=== PATIENT | male | born 1935 | race Caucasian/White ===

== ENCOUNTER 2022-05-30 10:14 | Outpatient (CLI) | payer MEDICARE, BC, SELFPAY | END 2022-05-30 10:15 | disposition home or self-care (01) | LOC: WOUND 10:15 | PROVIDERS: PCP Family Medicine; Visit Provider Nurse Practitioner Family | DX: E11.622 Type 2 diabetes mellitus with other skin ulcer (principal); L89.310 Pressure ulcer of right buttock, unstageable; L89.320 Pressure ulcer of left buttock, unstageable; M79.81 Nontraumatic hematoma of soft tissue; Z79.4 Long term (current) use of insulin; E66.01 Morbid (severe) obesity due to excess calories; Z68.41 Body mass index [BMI] 40.0-44.9, adult; S71.102A Unspecified open wound, left thigh, initial encounter | CPT/HCPCS: 10140; 99213 ==

== ENCOUNTER 2022-06-03 09:49 | Outpatient (CLI) | payer MEDICARE, BC, SELFPAY ==
--- NOTE | 2022-06-03 10:01 | CRLHL7_ITS ---
For Patients: As a result of the Century Cures Act, medical imaging exams and procedure reports are released immediately into your electronic medical record. You may view this report before your referring provider. If you have questions, please contact your health care provider. EXAM: Lower extremity arterial doppler ultrasound. TECHNIQUE: The bilateral lower extremity arteries were examined per exam specific protocol. Ultrasound performed using real-time baron scale imaging (B-mode 2D), color-flow Doppler and spectral analysis. Peak systolic velocities (PSV), Doppler waveform quality and velocity ratios if applicable, were documented at sites per exam specific protocol. In addition, resting ankle-brachial and toe-brachial indices were obtained. INDICATION: Lower extremity ulceration. Evaluate for peripheral vascular disease. COMPARISON: None available FINDINGS: RIGHT: PHYTOPATHOLOGY TEACHER PROX: 115 cm/sec; triphasic waveforms PFA: 55 cm/sec; biphasic waveforms SFA PROX: 171 cm/sec; triphasic waveforms SFA MID: 163 cm/sec; triphasic waveforms SFA DIST: 143 cm/sec; monophasic waveforms POP: 98 cm/sec; monophasic waveforms Peroneal: 100 cm/sec; monophasic waveform ACCOUNTS PAYABLE COORDINATOR: 62 cm/sec; monophasic waveforms DPA: 36 cm/sec; monophasic waveforms LEFT: PHYTOPATHOLOGY TEACHER: 110 cm/sec; triphasic waveforms PFA: 37 cm/sec; triphasic waveforms SFA PROX: 106 cm/sec; triphasic waveforms SFA MID: 95 cm/sec; triphasic waveforms SFA DIST: 70 cm/sec; triphasic waveforms POP: 81 cm/sec; triphasic waveforms Peroneal: Occluded ACCOUNTS PAYABLE COORDINATOR: 126 cm/sec; monophasic waveforms ALEXANDRO: 45 cm/sec; monophasic waveforms DPA: Occluded IMPRESSION: 1. 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 Otherwise, no no sonographic evidence of hemodynamically significant stenosis or occlusion in bilateral lower extremity arteries. Dictated by Burke Steen MD @ 06/03/2022 12:37:29 PM (Electronically Signed)
== END 2022-06-03 09:50 | disposition home or self-care (01) ==
PROVIDERS: PCP Family Medicine; Visit Provider Nurse Practitioner Family
DX: L97.912 Non-pressure chronic ulcer of unspecified part of right lower leg with fat layer exposed (principal)
CPT/HCPCS: 93926

== ENCOUNTER 2022-06-06 08:47 | Outpatient (CLI) | payer MEDICARE, BC, SELFPAY | END 2022-06-06 08:48 | disposition home or self-care (01) | LOC: WOUND 08:48 | PROVIDERS: PCP Family Medicine; Visit Provider Nurse Practitioner Family | DX: I87.331 Chronic venous hypertension (idiopathic) with ulcer and inflammation of right lower extremity (principal); L97.818 Non-pressure chronic ulcer of other part of right lower leg with other specified severity; L89.310 Pressure ulcer of right buttock, unstageable; L89.320 Pressure ulcer of left buttock, unstageable; L89.890 Pressure ulcer of other site, unstageable | CPT/HCPCS: 97602; 99215 ==

== ENCOUNTER 2022-06-11 09:39 | Outpatient (CLI) | payer MEDICARE, BC, SELFPAY ==
[2022-06-11 13:36] LABS: Albumin* 3.6 g/dL (3.3-5.0)
[2022-06-11 14:13] LABS: Ferritin* 49.2 ng/mL (17.9-464.0)
== END 2022-06-11 09:40 | disposition home or self-care (01) ==
LOC: LKVLAB 09:39
PROVIDERS: Nurse Practitioner Family; PCP Family Medicine; Visit Provider Family Medicine
DX: Z00.00 Encounter for general adult medical examination without abnormal findings (principal); L97.912 Non-pressure chronic ulcer of unspecified part of right lower leg with fat layer exposed; L03.90 Cellulitis, unspecified; I77.9 Disorder of arteries and arterioles, unspecified; E11.9 Type 2 diabetes mellitus without complications; I10 Essential (primary) hypertension; Z13.21 Encounter for screening for nutritional disorder
CPT/HCPCS: 36415; 82040; 82728; 84630

== ENCOUNTER 2022-06-13 09:47 | Outpatient (CLI) | payer MEDICARE, BC, SELFPAY | END 2022-06-13 09:48 | disposition home or self-care (01) | LOC: WOUND 09:48 | PROVIDERS: PCP Family Medicine; Visit Provider Nurse Practitioner Family | DX: L89.310 Pressure ulcer of right buttock, unstageable (principal); L89.320 Pressure ulcer of left buttock, unstageable; L89.890 Pressure ulcer of other site, unstageable | CPT/HCPCS: 97602; 99214 ==

== ENCOUNTER 2022-06-27 09:44 | Outpatient (CLI) | payer MEDICARE, BC, SELFPAY | END 2022-06-27 09:45 | disposition home or self-care (01) | LOC: WOUND 09:44 | PROVIDERS: PCP Family Medicine; Visit Provider Nurse Practitioner Family | DX: L89.310 Pressure ulcer of right buttock, unstageable (principal); L89.320 Pressure ulcer of left buttock, unstageable; L89.890 Pressure ulcer of other site, unstageable | CPT/HCPCS: 97602 ==

== ENCOUNTER 2022-06-28 08:42 | Outpatient (CLI) | payer MEDICARE, BC, SELFPAY | END 2022-06-28 08:43 | disposition home or self-care (01) | LOC: RAD 08:42 | PROVIDERS: PCP Family Medicine; Visit Provider Family Medicine | DX: I10 Essential (primary) hypertension (principal) | CPT/HCPCS: 93306 ==

== ENCOUNTER 2022-07-11 09:34 | Outpatient (CLI) | payer MEDICARE, BC, SELFPAY | END 2022-07-11 09:35 | disposition home or self-care (01) | LOC: WOUND 09:35 | PROVIDERS: PCP Family Medicine; Visit Provider Nurse Practitioner Family | DX: E11.622 Type 2 diabetes mellitus with other skin ulcer (principal); L89.320 Pressure ulcer of left buttock, unstageable; L89.310 Pressure ulcer of right buttock, unstageable; Z79.4 Long term (current) use of insulin | CPT/HCPCS: 99212 ==

== ENCOUNTER 2022-07-12 09:40 | Outpatient (CLI) | payer MEDICARE, BC, SELFPAY ==
[2022-07-12 13:33] LABS: NT Pro B Type NatriureticPept* 181 PG/mL (0-450)
== END 2022-07-12 09:41 | disposition home or self-care (01) ==
LOC: LKVREF 09:42
PROVIDERS: PCP Family Medicine; Visit Provider Family Medicine
DX: E11.9 Type 2 diabetes mellitus without complications (principal); I87.2 Venous insufficiency (chronic) (peripheral); R60.9 Edema, unspecified; I10 Essential (primary) hypertension
CPT/HCPCS: 83880

== ENCOUNTER 2022-12-09 09:33 | Outpatient (CLI) | payer MEDICARE, BC, SELFPAY ==
[2022-12-09 14:16] LABS: Creatinine Urine 148.5 mg/dL; Microalbumin Creatinine Ratio 10 mg/g (0-30); Microalbumin Urine 2 mg/dL
== END 2022-12-09 09:34 | disposition home or self-care (01) ==
PROVIDERS: PCP Family Medicine; Visit Provider Family Medicine
DX: Z00.00 Encounter for general adult medical examination without abnormal findings; E11.9 Type 2 diabetes mellitus without complications; I10 Essential (primary) hypertension; E78.5 Hyperlipidemia, unspecified; N40.0 Benign prostatic hyperplasia without lower urinary tract symptoms
CPT/HCPCS: 80053; 80061; 82043; 82570; 84153

== ENCOUNTER 2022-12-17 08:28 | Outpatient (CLI) | payer MEDICARE, BC, SELFPAY ==
[2022-12-17 13:38] LABS: Albumin* 3.7 g/dL (3.3-5.0); Chloride* 104 mmol/L (96-114); Potassium* 4.5 mmol/L (3.6-5.1); Sodium* 139 mmol/L (135-149)
[2022-12-17 13:40] LABS: Carbon Dioxide* 28 mmol/L (20-32); Cholesterol* 138 mg/dL (90-199); Creatinine* 0.7 mg/dL (0.5-1.5); Estimated Glomerular Filt Rate 90 ml/min
[2022-12-17 13:41] LABS: Alanine Aminotransferase* 16 U/L (4-50); Alkaline Phosphatase* 85 U/L (40-150); Aspartate Amino Transferase* 26 U/L (12-35); Bilirubin Total* 0.9 mg/dL (0.1-1.5); Blood Urea Nitrogen* 19 mg/dL (7-30); Calcium* 9.1 mg/dL (8.4-10.6); Glucose* 151 mg/dL (60-115); Total Protein* 7.3 g/dL (6.0-8.3); Triglycerides* 117 mg/dL (40-149)
[2022-12-17 13:55] LABS: HDL Cholesterol* 47 mg/dL (>=40); LDL Cholesterol Calculated 68 mg/dL (<100)
[2022-12-17 14:07] LABS: PSA Screen* 1.15 ng/mL (0.10-4.00)
== END 2022-12-17 08:29 | disposition home or self-care (01) ==
PROVIDERS: PCP Family Medicine; Visit Provider Family Medicine
DX: Z00.00 Encounter for general adult medical examination without abnormal findings (principal); E11.3293 Type 2 diabetes mellitus with mild nonproliferative diabetic retinopathy without macular edema, bilateral; E11.9 Type 2 diabetes mellitus without complications; I10 Essential (primary) hypertension; N40.0 Benign prostatic hyperplasia without lower urinary tract symptoms; Z12.5 Encounter for screening for malignant neoplasm of prostate
CPT/HCPCS: 80053; 80061; 84153

== ENCOUNTER 2023-06-03 10:34 | Outpatient (CLI) | payer MEDICARE, BC, SELFPAY | END 2023-06-03 10:35 | disposition home or self-care (01) | LOC: NFLDREF 06-04 11:02 | PROVIDERS: PCP Family Medicine; Referring Provider Family Medicine; Visit Provider Family Medicine | DX: Z00.00 Encounter for general adult medical examination without abnormal findings (principal); E11.9 Type 2 diabetes mellitus without complications; N40.0 Benign prostatic hyperplasia without lower urinary tract symptoms; I10 Essential (primary) hypertension; E78.5 Hyperlipidemia, unspecified | CPT/HCPCS: 80053; 80061; 82043; 82570; 84153 ==

== ENCOUNTER 2023-06-06 14:31 | Outpatient (CLI) | payer MEDICARE, BC, SELFPAY | END 2023-06-06 14:32 | disposition home or self-care (01) | LOC: NFLDREF 06-09 10:59 | PROVIDERS: PCP Family Medicine; Referring Provider Family Medicine; Visit Provider Family Medicine | DX: E11.9 Type 2 diabetes mellitus without complications (principal); I25.10 Atherosclerotic heart disease of native coronary artery without angina pectoris; L03.90 Cellulitis, unspecified; I87.2 Venous insufficiency (chronic) (peripheral); R60.9 Edema, unspecified; I83.009 Varicose veins of unspecified lower extremity with ulcer of unspecified site; L97.909 Non-pressure chronic ulcer of unspecified part of unspecified lower leg with unspecified severity; B99.9 Unspecified infectious disease; J44.9 Chronic obstructive pulmonary disease, unspecified; I77.9 Disorder of arteries and arterioles, unspecified; L89.611 Pressure ulcer of right heel, stage 1; L89.621 Pressure ulcer of left heel, stage 1 | CPT/HCPCS: 82043; 82570 ==

== ENCOUNTER 2023-06-13 11:15 | Emergency (ER) | payer MEDICARE, BC, SELFPAY ==
[2023-06-13] VITALS (7 sets, daily range): BP systolic 120–169; BP diastolic 80–119; PULSE 77–93; RESP 20–29; TEMP 36.6; O2SAT 89–91
--- NOTE | 2023-06-13 11:43 | CRLHL7_ITS ---
For Patients: As a result of the Cures Act, medical imaging exams and procedure reports are released immediately into your electronic medical record. You may view this report before your referring provider. If you have questions, please contact your health care provider. INDICATION: Cough TECHNIQUE: Chest 2 views COMPARISON: 07/12/2022 FINDINGS: Tortuosity of the aorta. Cardiac silhouette is upper limits of normal. Ankylosis thoracic spine. No pleural effusion. Bronchial wall thickening in both lower lobes. No dense infiltrate. IMPRESSION: Bilateral bronchiolitis. Dictated by Mat Lopez MD @ 06/13/2023 12:36:59 PM (Electronically Signed)
--- NOTE | 2023-06-13 11:49 | ED_ITS ---
HPI - General Adult General Chief complaint: Cough Stated complaint: cough Time Seen by Provider: 06/13/23 11:37 Source: patient and EMS Mode of arrival: EMS History of Present Illness HPI narrative: 87-year-old male coming in today via EMS for low oxygen saturations. According to his home health nurse he was standing around 90% at home and so it was recommended he come to the ER. Patient states he has been coughing all day and all night for the last 2 days. He denies any fevers or chills. No nausea or vomiting. Denies of a cough being productive. Of note, patient was seen in the clinic 7 days ago where his oxygen saturation was 90%. Patient does have a history of COPD. He and his Olimpia tell me that 90% is his baseline and that is what he is chronically at. 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 His tells me that they have been blistering more in the last week or so, however are not becoming more erythematous. He does state that he does not been elevating his legs nor does he wear any compression stockings. He is currently on Keflex for the stage I ulcers of the heels which he started approximately 6 days ago. Related Data Home Medications Medication Instructions Recorded Confirmed albuterol sulfate 90 mcg/actuation g inhalation 05/27/22 06/06/23 aerosol inhaler cholecalciferol (vitamin D3) 25 25 mcg PO DAILY 06/10/22 06/06/23 mcg (1,000 unit) capsule ibuprofen 200 mg tablet mg PO DAILY 06/10/22 06/06/23 tiotropium bromide 18 mcg capsule 18 inhalation DAILY 06/10/22 06/06/23 with inhalation device triamcinolone acetonide 0.1 % 1 applic topical PRN 06/10/22 06/06/23 topical cream mupirocin 2 % topical ointment 1 applic topical DAILY PRN 06/13/22 06/06/23 multivitamin (Daily Multi-Vitamin 1 tab PO QDAY 07/12/22 06/06/23 tablet) psyllium husk PO .prn 07/12/22 06/06/23 zinc gluconate 30 mg tablet 30 mg PO QDAY 07/12/22 06/06/23 pumpkin seed extract-soy germ 300 2 cap PO DAILY 08/23/22 06/06/23 mg capsule (Azo Bladder Control) Previous Rx's Medication Instructions Recorded lancets (Microlet Lancet) #300 ea 06/13/22 Diabetic Test Strips #100 ea 12/09/22 fluticasone propionate 230 2 inh inhalation BID #12 grams 12/25/22 mcg-salmeterol 21 mcg/actuation HFA inhaler (Advair HFA) pen needle, diabetic 31 gauge x #100 ea 12/26/22/16 (BD Ultra-Fine Mini Pen Needle) montelukast 10 mg tablet 10 mg PO DAILY #90 tabs 01/20/23 rosuvastatin 5 mg tablet 5 mg PO .hs #90 tabs 01/20/23 finasteride 5 mg tablet 5 mg PO DAILY #90 tabs 02/14/23 citalopram 20 mg tablet 20 mg PO DAILY #90 tabs 02/20/23 insulin aspart U-100 100 unit/mL 10 unit (0.1 mL) subcut BID #15 mL 02/20/23 (3 mL) subcutaneous pen (Novolog FlexPen U-100 Insulin aspart) metoprolol succinate 25 mg 25 mg PO DAILY #90 tabs 02/20/23 tablet,extended release 24 hr oxybutynin chloride 5 mg 5 mg PO DAILY #90 tabs 02/20/23 tablet,extended release 24 hr insulin glargine 100 unit/mL (3 30 unit (0.3 mL) subcut BID #15 mL 03/18/23 mL) subcutaneous pen (Basaglar KwikPen U-100 Insulin) tamsulosin 0.4 mg capsule 0.8 mg (2 x 0.4 mg) PO DAILY #180 04/17/23 caps potassium chloride 10 mEq 10 meq PO DAILY #30 caps 05/14/23 capsule,extended release cephalexin 500 mg capsule 500 mg PO TID #30 caps 06/06/23 furosemide 20 mg tablet 40 mg (2 x 20 mg) PO DAILY #180 06/06/23 tabs nitroglycerin 0.4 mg sublingual 0.4 mg sublingual Q5-15M PRN chest 06/06/23 tablet pain #25 tabs semaglutide 0.25 mg or 0.5 mg (2 0.25 mg (0.4 mL) subcut QWEEK #3 mL 06/06/23 mg/3 mL) subcutaneous pen injector (Ozempic) semaglutide 0.25 mg or 0.5 mg (2 0.5 mg (0.8 mL) subcut QWEEK #6 mL 06/06/23 mg/3 mL) subcutaneous pen injector (Ozempic) silver sulfadiazine 1 % topical 1 applic topical BID #50 grams 06/06/23 cream (Silvadene) doxycycline hyclate 100 mg capsule 100 mg PO BID 7 days #14 caps 06/13/23 Allergies Allergy/AdvReac Type Severity Reaction Status Date / Time Angiotensin-converting Allergy Uncoded 06/06/23 13:42 enzyme inhibitor HMG-CoA reductase inhibitor Allergy Uncoded 06/06/23 13:42 Influenza A virus Allergy Uncoded 06/06/23 13:42 [facility] Medical History Venous stasis ulcer ?I83.009 - Varicose veins of unspecified lower extremity with ulcer of unspecified site (ICD-10) ?L97.909 - Non-pressure chronic ulcer of unspecified part of unspecified lower leg with unspecified severity (ICD-10) CAD (coronary artery disease) ?I25.10 - Atherosclerotic heart disease of [place] coronary artery without angina pectoris (ICD-10) COPD (chronic obstructive pulmonary disease) ?J44.9 - Chronic obstructive pulmonary disease, unspecified (ICD-10) Peripheral arterial occlusive disease ?I77.9 - Disorder of arteries and arterioles, unspecified (ICD-10) BPH (benign prostatic hyperplasia) ?N40.0 - Benign prostatic hyperplasia without lower urinary tract symptoms (ICD-10) Type 2 diabetes mellitus without complication (05/24/15) ?E11.9 - Type 2 diabetes mellitus without complications (ICD-10) Non-pressure ulcer of right lower extremity with fat layer exposed ?L97.912 - Non-pressure chronic ulcer of unspecified part of right lower leg with fat layer exposed (ICD-10) Cellulitis ?L03.90 - Cellulitis, unspecified (ICD-10) Surgical History History of umbilical hernia repair ?Z98.890 - Other specified postprocedural states (ICD-10) ?Z87.19 - Personal history of other diseases of the digestive system (ICD-10) History of tonsillectomy ?Z90.89 - Acquired absence of other organs (ICD-10) Family History Father Myocardial infarction, Onset Age: 87 Mother Pulmonary embolism, Onset Age: 86 Brother Pneumonia, Onset Age: 78 Social History Narrative: Does not drink alcohol Does not use illicit drugs Former smoker- quit over 30 years ago Retried from employment- worked in a [employer] Smoking Status: Former smoker Do you use any of these nicotine containing products: None Second hand tobacco smoke exposure: No How often do you have a drink containing alcohol: never AUDIT-C Alcohol total score: 0 Non-prescribed substance use: denies use Little interest or pleasure in doing things: not at all Feeling down, depressed, or hopeless: not at all Exam Narrative: Exam Narrative: Morbidly obese, elderly patient in no acute distress. Cooperative. Appears to have some confusion. HEENT: Normocephalic atraumatic. Pupils are equally round reactive to light. Extraocular muscles are intact. Conjunctivae are moist without any icterus noted. Slightly dry mucous membranes. Neck is supple. Cardiovascular: Heart is regular rate and rhythm S1 and S2 are present without any murmurs, however heart sounds are quite distant. Lungs: Clear to auscultation bilaterally no wheezes rhonchi or rales are appreciated. Patient takes deep breaths without any discomfort. However, breat h sounds are distant secondary to body habitus. Abdomen: Large and protuberant with normal bowel sounds. Extremities: Bilateral lower extremities show 3+ pitting edema with [place] induration. Skin has multiple fluid filled blisters with 1 broken blister on the left lower extremity. The skin is erythematous and warm to touch bilaterally. Does have a small ulcer on the right heel that appears to be a stage II. Const: Vital Signs, click to edit/add: Vital Signs - 24 hr 06/13/23 11:31 06/13/23 12:15 Temperature 97.9 F Pulse Rate [Left P ulse Oximeter] 85 Respiratory Rate 20 Blood Pressure [Ri ght Upper Arm] 132/119 H Pulse Oximetry 91 90 Oxygen Delivery Me thod Room Air Course Course Hospital Course: Lab work does not show any evidence of bacterial infection. CRP is 1.3, normal lactate, normal white blood cell count. Triple swab is negative. Chest x-ray does show bilateral bronchiolitis. Patient remained between 88-92% on room air while here. With ambulation he sits around 88-90%, he does not feel more short of breath with ambulation. Vital Signs Vital signs: Initial Vital Signs Temperature 97.9 F 06/13/23 11:31 Temperature Source Temporal Artery Scan 06/13/23 11:31 Pulse Rate 85 06/13/23 11:31 Pulse Rhythm Regular 06/13/23 11:31 Respiratory Rate 20 06/13/23 11:31 Blood Pressure 132/119 H 06/13/23 11:31 Blood Pressure Mean 123 H 06/13/23 11:31 Blood Pressure Position Sitting 06/13/23 11:31 Pulse Oximetry 91 06/13/23 11:31 Oxygen Delivery Method Room Air 06/13/23 11:31 Vital Signs Temperature 97.9 F 06/13/23 11:31 Pulse Rate 85 06/13/23 11:31 Respiratory Rate 20 06/13/23 11:31 Blood Pressure 132/119 H 06/13/23 11:31 Pulse Oximetry 91 06/13/23 11:31 Oxygen Delivery Method Room Air 06/13/23 11:31 Temperature 97.9 F 06/13/23 11:31 Pulse Rate 85 06/13/23 11:31 Respiratory Rate 20 06/13/23 11:31 Blood Pressure 132/119 H 06/13/23 11:31 Pulse Oximetry 90 06/13/23 12:15 Oxygen Delivery Method Room Air 06/13/23 11:31 Medical Decision Making [facility] Narrative Medical decision making narrative: 87-year-old male with COPD, bronchiolitis likely viral in nature, presenting with oxygen saturation that appears to be at his baseline. At this time I do think it is safe for him to be discharged back home. However, given the appearance of bronchiolitis on x-ray we will cover him for atypicals with doxycycline for 7 days. Azithromycin not chosen given the patient is currently on citalopram. Recommend following up with primary care to discuss the need for oxygen at home given his chronic COPD. Medical Records Medical records reviewed: Yes I reviewed the patient's medical records Lab Data Lab results reviewed: Yes I reviewed the patient's lab results Labs: Lab Results 06/13/23 06/13/23 06/13/23 Range/Units 12:20 13:00 14:14 WBC 8.75 (4.50-11.00) K/uL RBC 4.97 (4.30-5.90) m/uL Hgb 15.1 (13.5-17.5) gm/dL Hct 46.3 (37.0-53.0) % MCV 93 (80-100) fL MCH 30 (26-34) pg MCHC 33 (32-36) gm/dL RDW Coeff of Tommy 13.9 (11.5-15.5) % Plt Count 150 (140-440) K/uL Neut % (Auto) 71.1 (42.0-72.0) % Lymph % (Auto) 15.9 L (20-44) % Lee % (Auto) 8.2 (0.0-11.0) % Eos % (Auto) 3.7 (0.0-7.0) % Baso % (Auto) 0.5 (0.0-3.0) % Neut # (Auto) 6.23 (1.7-7.0) K/uL Lymph # (Auto) 1.40 (0.90-2.90) K/uL Lee # (Auto) 0.70 (0.00-0.90) K/UL Eos # (Auto) 0.32 (0.00-0.50) K/uL Baso # (Auto) 0.04 (0.00-0.30) K/uL Abs Immat Gran (auto) 0.05 (0.00-0.30) K/uL Imm/Tot Granulo (auto) 0.6 % Diff Slide Review Acceptable Review (Acceptable) Sodium 136 (135-149) mmol/L Potassium 4.2 (3.6-5.1) mmol/L Chloride 102 (96-114) mmol/L Carbon Dioxide 26 (20-32) mmol/L BUN 25 (7-30) mg/dL Creatinine 0.8 (0.5-1.5) mg/dL Estimated GFR 87 ml/min Glucose 276 H (60-115) mg/dL Lactate 1.9 (0.5-1.9) mmol/L Calcium 9.0 (8.4-10.6) mg/dL C-Reactive Protein 1.3 H (0.5-1.0) mg/dL NT-Pro-B Natriuret Pep 177 pg/mL SARS-CoV-2 (PCR) Negative SARS-CoV-2 (Negative) Influenza Type A (PCR) Negative PCR FLU A (Negative) Influenza Type B (PCR) Negative PCR FLU B (Negative) RSV (PCR) Negative PCR RSV (Negative) Imaging Data Chest x-ray: Attestation: I have reviewed the pertinent imaging results. Radiologist's impression: Chest 2 views COMPARISON: 07/12/2022 FINDINGS: Tortuosity of the aorta. Cardiac silhouette is upper limits of normal. Ankylosis thoracic spine. No pleural effusion. Bronchial wall thickening in both lower lobes. No dense infiltrate. IMPRESSION: Bilateral bronchiolitis. Discharge Plan Discharge Clinical Impression: Bronchiolitis, COPD (chronic obstructive pulmonary disease) Patient Disposition: Home, Self-Care Condition: Stable Additional Instructions: There was no evidence of pneumonia on your exam today. You do have what appears to be bronchiolitis which is an inflammation of the lungs. Because of this you will be placed on another antibiotic, doxycycline, you should continue your Keflex. Recommend following up with your primary care provider to discuss the need for oxygen. It appears that an oxygen saturation of 88-92% as your baseline and nothing to be concerned about at this time, but again do recommend you follow up with your primary care provider to discuss the need for oxygen at home. Prescriptions: New doxycycline hyclate 100 mg capsule 100 mg PO BID 7 Days Qty: 14 0RF No Action albuterol sulfate 90 mcg/actuation HFA aerosol inhaler inhalation Patient Comments: INHALE 2 PUFFS BY MOUTH EVERY 4 HOURS NEEDED mupirocin 2 % ointment 1 applic topical DAILY PRN Azo Bladder Control 300 mg capsule 2 cap PO DAILY nitroglycerin 0.4 mg tablet, sublingual 0.4 mg sublingual Q5-15M PRN (Reason: chest pain) Qty: 25 1RF Ozempic 0.25 mg or 0.5 mg (2 mg/3 mL) pen injector 0.25 mg subcut QWEEK Qty: 3 0RF Rx Instructions: for 4 weeks Ozempic 0.25 mg or 0.5 mg (2 mg/3 mL) pen injector 0.5 mg subcut QWEEK Qty: 6 1RF furosemide 20 mg tablet 40 mg PO DAILY Qty: 180 1RF Rx Instructions: may take additional tablet as needed for shortness of breath silver sulfadiazine [Silvadene] 1 % cream 1 applic topical BID Qty: 50 1RF Rx Instructions: apply a 1.5 mm thickness cephalexin 500 mg capsule 500 mg PO TID Qty: 30 0RF cholecalciferol (vitamin D3) 25 mcg (1,000 unit) capsule 25 mcg PO DAILY ibuprofen 200 mg tablet PO DAILY tiotropium bromide 18 mcg capsule, w/inhalation device 18 inhalation DAILY triamcinolone acetonide 0.1 % cream 1 applic topical PRN Rx Instructions: Apply thin layer to affected skin twice a day as needed. Max 2 weeks of continous use. (DME) lancets [Microlet Lancet] Misc See Rx Instructions .Route Qty: 300 8RF Rx Instructions: Use to test TID psyllium husk PO .prn zinc gluconate 30 mg tablet 30 mg PO QDAY multivitamin [Daily Multi-Vitamin] Tablet 1 tab PO QDAY (DME) Diabetic Test Strips Mis See Rx Instructions .Route Qty: 100 12RF Rx Instructions: Bid citalopram 20 mg tablet 20 mg PO DAILY Qty: 90 1RF oxybutynin chloride 5 mg tablet extended release 24hr 5 mg PO DAILY Qty: 90 1RF metoprolol succinate 25 mg tablet extended release 24 hr 25 mg PO DAILY Qty: 90 3RF insulin aspart U-100 [Novolog FlexPen U-100 Insulin] 100 unit/mL (3 mL) insulin pen 10 unit subcut BID Qty: 15 5RF Advair HFA 230-21 mcg/actuation HFA aerosol inhaler 2 inh inhalation BID Qty: 12 11RF (DME) pen needle, diabetic [BD Ultra-Fine Mini Pen Needle] 31 gauge x 3/16 needle See Rx Instructions .ROUTE .MEDSUPPLY Qty: 100 5RF Rx Instructions: Use 4 times daily montelukast 10 mg tablet 10 mg PO DAILY Qty: 90 3RF rosuvastatin 5 mg tablet 5 mg PO .hs Qty: 90 3RF finasteride 5 mg tablet 5 mg PO DAILY Qty: 90 2RF insulin glargine [Basaglar KwikPen U-100 Insulin] 100 unit/mL (3 mL) insulin pen 30 unit subcut BID Qty: 15 5RF tamsulosin 0.4 mg capsule 0.8 mg PO DAILY Qty: 180 3RF potassium chloride 10 mEq capsule, extended release 10 meq PO DAILY Qty: 30 0RF Follow Up/Referrals: Glenn Cole MD [Primary Care Provider] - Stand Alone Forms: [facility] Info Instructions
[2023-06-13 13:04] LABS: Lactate* 1.9 mmol/L (0.5-1.9)
[2023-06-13 13:12] LABS: Basophils Absolute Auto 0.04 K/uL (0.00-0.30); Basophils Percent Auto 0.5 % (0.0-3.0); Eosinophils Absolute Auto 0.32 K/uL (0.00-0.50); Eosinophils Percent Auto 3.7 % (0.0-7.0); Hematocrit 46.3 % (37.0-53.0); Hemoglobin* 15.1 gm/dL (13.5-17.5); Immature Granulocytes Abs Auto 0.05 K/uL (0.00-0.30); Immature Granulocytes Pct Auto 0.6 %; Lymphocytes Percent Auto 15.9 % (20-44); Mean Corpuscular HGB Conc 33 gm/dL (32-36); Mean Corpuscular Hemoglobin 30 pg (26-34); Mean Corpuscular Volume 93 fL (80-100); Monocytes Percent Auto 8.2 % (0.0-11.0); Neutrophils Absolute Auto 6.23 K/uL (1.7-7.0); Neutrophils Percent Auto 71.1 % (42.0-72.0); Platelet Count* 150 K/uL (140-440); RDW Coefficient of Variation % 13.9 % (11.5-15.5); Red Blood Count 4.97 m/uL (4.30-5.90); White Blood Count* 8.75 K/uL (4.50-11.00)
[2023-06-13 13:17] LABS: PCR FLU A Negative PCR FLU A (Negative); PCR FLU B Negative PCR FLU B (Negative); PCR RSV Negative PCR RSV (Negative)
[2023-06-13 13:19] LABS: SARS PCR* Negative SARS-CoV-2 (Negative)
[2023-06-13 13:28] LABS: Chloride* 102 mmol/L (96-114); Potassium* 4.2 mmol/L (3.6-5.1); Sodium* 136 mmol/L (135-149)
[2023-06-13 13:30] LABS: Slide Review Reflex Yes
[2023-06-13 13:31] LABS: Carbon Dioxide* 26 mmol/L (20-32); Creatinine* 0.8 mg/dL (0.5-1.5); Estimated Glomerular Filt Rate 87 ml/min; Slide Review Acceptable Review (Acceptable)
[2023-06-13 13:32] LABS: Blood Urea Nitrogen* 25 mg/dL (7-30); Glucose* 276 mg/dL (60-115)
[2023-06-13 13:35] LABS: C Reactive Protein* 1.3 mg/dL (0.5-1.0)
--- NOTE | 2023-06-13 14:40 | ED.NURSE ---
Patient ambulated with stand-by assist x2. He uses walker well (reports using cane at home). [place] belt on for safety. Patient able to ambulate to restroom without difficulty. SpO2 at rest on cot 87-90%, remains such with ambulation to and from restroom. Patient denies increased shortness of breath with ambulation. He notes pain in his heels (stasis ulcers) but otherwise denies discomfort. Patient resting in chair in room, accompanies. Dr. Torrez updated with ambulation results.
[2023-06-13] MEDS: FUROSEMIDE 10 MG/ML inj 20 MG IVP (14:50)
[2023-06-13 14:58] LABS: NT Pro B Type NatriureticPept* 177 pg/mL
== END 2023-06-13 15:28 | disposition home or self-care (01) ==
PROVIDERS: Emergency Provider Family Medicine; PCP Family Medicine
DX: J98.09 Other diseases of bronchus, not elsewhere classified (principal); J44.9 Chronic obstructive pulmonary disease, unspecified
CPT/HCPCS: 36415; 71046; 80048; 83605; 83880; 85025; 86140; 87631; 94761; 96374; 99284; J1940

== ENCOUNTER 2023-08-30 08:07 | Inpatient (IN) | payer MEDICARE, BC, SELFPAY ==
[2023-08-30] VITALS (17 sets, daily range): BP systolic 125–151; BP diastolic 76–116; PULSE 65–100; RESP 20–26; TEMP 36.1–36.3; O2SAT 82–94; BMI 38.7; BMI 43.6
--- NOTE | 2023-08-30 08:46 | CRLHL7_ITS ---
For Patients: As a result of the Cures Act, medical imaging exams and procedure reports are released immediately into your electronic medical record. You may view this report before your referring provider. If you have questions, please contact your health care provider. INDICATION: Fall. Chest pain. Hypoxia. TECHNIQUE: Chest 1 view. COMPARISON: 07/03/2023. FINDINGS: Heart and mediastinum: AP technique, low lung volumes and patient rotation exaggerate the transverse dimension of the cardiomediastinal silhouette. No specific abnormal findings are seen. Lungs and pleural spaces: As discussed above, the patient has taken a shallow inspiration and is rotated leftward. Persistent unchanged peripheral left lower lobe band opacity consistent with nonspecific fibrosis. No coalescent consolidation or significant pleural effusion. Bones and soft tissues: No significant findings. IMPRESSION: No radiographic findings to explain the clinical history. Limited study as discussed above. Dictated by Gerson Lui MD @ 08/30/2023 9:40:02 AM (Electronically Signed)
--- NOTE | 2023-08-30 08:48 | ED_ITS ---
HPI - General Adult General Time Seen by Provider: 08:49 Date Seen: 08/30/23 Chief complaint: Fall/Minor Trauma Stated complaint: Fall Time Seen by Provider: 08/30/23 08:46 History of Present Illness HPI narrative: This is an 87-year-old gentleman brought to the ER today by EMS. He apparently got out of bed this morning around 6 and was still drowsy. He fell and apparently not on back. He fell down 5 steps. He does recall where he was going when he got out of bed. He recalls no recent illnesses, no recent trouble breathing, fever, cough, or other symptoms. He does have some chronic bilateral extremity edema. He is not sure why. He has wraps on both legs any says he has been seeing nurses for about 6 weeks. If his doctor knows why his legs are swollen, patient is unaware. He also has some chronic bilateral knee pain which is worse than normal this morning. Is worse problem is that he is having pain in both sides of his chest, in particular when he moves and when he breathes. He was noted to be hypoxic and is now on nasal cannula. Patient does not think he is normally on oxygen at home. He is not aware of any of his past medical history are any of his medications. He knows that his doctors at the [facility]. In review his medical record Past medical history includes lower extremity edema, cellulitis, peripheral artery disease, coronary disease, peripheral edema, COPD, history of rheumatic fever, hypertension, hyperlipidemia, BPH, COPD, previous ulcers on his heels. It looks like he received prescriptions for prednisone and doxycycline in June ( possibly for COPD flare? ) Additionally for history from his is that she heard him fall and hit the floor loudly. He was having too much discomfort for his and daughter to get him up off the floor. Related Data Home Medications Medication Instructions Recorded Confirmed albuterol sulfate 90 mcg/actuation 2 puff inhalation Q4H PRN 05/27/22 08/30/23 aerosol inhaler cholecalciferol (vitamin D3) 25 25 mcg PO DAILY 06/10/22 08/30/23 mcg (1,000 unit) capsule ibuprofen 200 mg tablet 400 mg PO Q6H PRN 06/10/22 08/30/23 multivitamin (Daily Multi-Vitamin 1 tab PO DAILY 07/12/22 08/30/23 tablet) zinc gluconate 30 mg tablet 30 mg PO DAILY 07/12/22 08/30/23 pumpkin seed extract-soy germ 300 2 cap PO DAILY 08/23/22 08/30/23 mg capsule (Azo Bladder Control) citalopram 20 mg tablet 20 mg PO HS 08/30/23 08/30/23 fluticasone propionate 230 3 inh inhalation HS 08/30/23 08/30/23 mcg-salmeterol 21 mcg/actuation HFA inhaler (Advair HFA) metoprolol succinate 25 mg 25 mg PO DAILY@12 08/30/23 08/30/23 tablet,extended release 24 hr montelukast 10 mg tablet 10 mg PO HS 08/30/23 08/30/23 potassium chloride 10 mEq 10 meq PO QPM 08/30/23 08/30/23 capsule,extended release psyllium husk 3.4 gram/5.4 gram 1 tbsp PO DAILY PRN 08/30/23 08/30/23 oral powder (Metamucil) rosuvastatin 5 mg tablet 5 mg PO QPM 08/30/23 08/30/23 Previous Rx's Medication Instructions Recorded lancets (Microlet Lancet) #300 ea 06/13/22 Diabetic Test Strips #100 ea 12/09/22 finasteride 5 mg tablet 5 mg PO DAILY #90 tabs 02/14/23 insulin glargine 100 unit/mL (3 30 unit (0.3 mL) subcut BID #15 mL 03/18/23 mL) subcutaneous pen (Basaglar KwikPen U-100 Insulin) tamsulosin 0.4 mg capsule 0.8 mg (2 x 0.4 mg) PO DAILY #180 04/17/23 caps furosemide 20 mg tablet 40 mg (2 x 20 mg) PO DAILY #180 06/06/23 tabs nitroglycerin 0.4 mg sublingual 0.4 mg sublingual Q5-15M PRN chest 06/06/23 tablet pain #25 tabs insulin aspart U-100 100 unit/mL 10 unit (0.1 mL) subcut BID PRN bs 07/03/23 (3 mL) subcutaneous pen (Novolog > 200 #15 mL FlexPen U-100 Insulin aspart) pen needle, diabetic 31 gauge x #100 ea 07/15/23/16 (BD Ultra-Fine Mini Pen Needle) oxybutynin chloride 5 mg 5 mg PO DAILY #90 tabs 08/29/23 tablet,extended release 24 hr Allergies Allergy/AdvReac Type Severity Reaction Status Date / Time Angiotensin-converting Allergy Uncoded 08/12/23 14:05 enzyme inhibitor HMG-CoA reductase inhibitor Allergy Uncoded 08/12/23 14:05 Influenza A virus Allergy Uncoded 08/12/23 14:05 [facility] Medical History (Updated 08/30/23 @ 17:05 by Burke Chaudhari MD) Sleep apnea ?G47.30 - Sleep apnea, unspecified (ICD-10) Chronic acquired lymphedema ?I89.0 - Lymphedema, not elsewhere classified (ICD-10) Health care directive on file ?Z78.9 - Other specified health status (ICD-10) Venous stasis ulcer ?I83.009 - Varicose veins of unspecified lower extremity with ulcer of unspecified site (ICD-10) ?L97.909 - Non-pressure chronic ulcer of unspecified part of unspecified lower leg with unspecified severity (ICD-10) CAD (coronary artery disease) ?I25.10 - Atherosclerotic heart disease of tribe coronary artery without angina pectoris (ICD-10) COPD (chronic obstructive pulmonary disease) ?J44.9 - Chronic obstructive pulmonary disease, unspecified (ICD-10) Peripheral arterial occlusive disease ?I77.9 - Disorder of arteries and arterioles, unspecified (ICD-10) BPH (benign prostatic hyperplasia) ?N40.0 - Benign prostatic hyperplasia without lower urinary tract symptoms (ICD-10) Type 2 diabetes mellitus without complication (05/24/15) ?E11.9 - Type 2 diabetes mellitus without complications (ICD-10) Non-pressure ulcer of right lower extremity with fat layer exposed ?L97.912 - Non-pressure chronic ulcer of unspecified part of right lower leg with fat layer exposed (ICD-10) Cellulitis ?L03.90 - Cellulitis, unspecified (ICD-10) Surgical History History of umbilical hernia repair ?Z98.890 - Other specified postprocedural states (ICD-10) ?Z87.19 - Personal history of other diseases of the digestive system (ICD-10) History of tonsillectomy ?Z90.89 - Acquired absence of other organs (ICD-10) Family History Father Myocardial infarction, Onset Age: 87 Mother Pulmonary embolism, Onset Age: 86 Brother Pneumonia, Onset Age: 78 Social History (Updated 08/30/23 @ 16:57 by Burke Chaudhari MD) Narrative: 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 Code status is DNR Does not drink alcohol Does not use illicit drugs Former smoker- quit over 30 years ago , lives with his in [place]. He has recently been getting relatively intensive PT and OT and home health nursing treatment for his lymphedema and his weakness. Retried from employment- worked in a [employer] What is your current living situation?: I presently have a place to live Problems where you live: no known problems Problems where you live details: N/A In the past 12 months, utilities in danger of being shut off: no In past 12 months, lack of transportation kept you from medical appts, meetings, work, or getting things needed for daily living: no In the past 12 mos, have been you worried that your food would run out before you had money to buy more?: never true In the past 12 mos, the food you bought just didn't last and you didn't have money to buy more?: never true Highest level of school completed/degree received: high school graduate Smoking Status: Former smoker Do you use any of these nicotine containing products: None Second hand tobacco smoke exposure: No How often do you have a drink containing alcohol: never AUDIT-C Alcohol total score: 0 Non-prescribed substance use: denies use Caffeine: Yes (1 can soda daily) How often does anyone, including family, friends and others, physically hurt you : never How often does anyone, including family, friends and others, insult or talk down to you: never How often does anyone, including family, friends and others, threaten you with harm: never How often does anyone, including family, friends and others, scream or curse at you: never Little interest or pleasure in doing things: not at all Feeling down, depressed, or hopeless: not at all Do you think of yourself as: straight/heterosexual Gender Identity: male service: Yes Exam Narrative: Exam Narrative: Constitutional: Appears well-developed and well-nourished. Alert. He is a poor historian. He is really not able answer many questions. Even when it comes to localize his pain he has trouble with that. He does seem to have pain and tenderness affecting both sides of his chest, possibly more on the right than on the left. He complains of pain one of my knees, but actually then has pain in both of his knees. He has wraps affecting both of his lower extremities and feet. He says nurses put them on. He does not know why. oxygen 86% on nasal cannula but it is not fitting properly in his nose. I adjusted in sats came up to 89%. HENT: Head: Atraumatic. Nose: Nose normal. Mouth/Throat: Oral mucosa is clear and moist. no trismus. Pharynx normal. Tonsils symmetric. No tonsillar enlargement, erythema, or exudate. Eyes: Conjunctivae normal. EOM normal. Pupils equal, round, and reactive to light. No scleral icterus. Neck: Cervical collar placed by EMS. Range of motion not assessable.. Neck supple. No tracheal deviation present. Cardiovascular: Normal rate, irregularly irregular rhythm. No gallop. No friction rub. No murmur heard. Symmetric radial and PTartery pulses . difficult to feel DP pulses bilaterally. Pulmonary/Chest: Effort normal. No stridor. No respiratory distress. No wheezes. No rales. No rhonchi . Marked diffuse bilateral chest wall tenderness. Abdominal: Soft. Bowel sounds normal. No distension. No mass. No tenderness. No rebound. No guarding. Musculoskeletal: RUE: Normal range of motion. No tenderness. No deformity LUE: Normal range of motion. No tenderness. No deformity RLE: he has limited range of motion in his hip the knee, apparently due to knee pain. Able to flex to about 30?. He also has generalized weakness which makes it difficult For him to perform ROM. 2+ edema. there is a 2-3 cm scaly macule on the mid robles that appears chronic. There is an area of surrounding erythema affecting the mid and medial robles - unclear if this edemais acute or chronic . No deformity LLE: he has limited range of motion in his hip the knee, apparently due to knee pain. Able to flex to about 30?. He also has generalized weakness which makes it difficult for him to range his knee.. 2+ edema. some chronic appearing edema on the mid medial robles. No tenderness. No deformity Lymph: No ascending lymphangitis on the left Neurological: Alert and oriented to person, place, and time. Normal strength. CN II-VII intact. No sensory deficit. GCS eye subscore is 4. GCS verbal subscore is 5. GCS motor subscore is 6. Normal coordination Skin: Skin is warm and dry. No rash noted. No pallor. Normal capillary refill. Psychiatric: Normal mood. Normal affect. Const: Vital Signs, click to edit/add: Vital Signs - 24 hr 08/30/23 08:19 08/30/23 09:20 08/30/23 09:30 Temperature 97.4 F L Pulse Rate 88 92 Pulse Rate [Pulse Oximeter] 100 Respiratory Rate 26 H Blood Pressure Blood Pressure [Le ft Upper Arm] 148/79 H Pulse Oximetry 83 L 92 89 Oxygen Delivery Me thod Room Air Nasal Cannula Nasal Cannula Oxygen Flow Rate 4 4 08/30/23 09:32 08/30/23 09:33 08/30/23 10:24 Temperature Pulse Rate 88 87 75 Pulse Rate [Pulse Oximeter] Respiratory Rate Blood Pressure 151/82 H Blood Pressure [Le ft Upper Arm] Pulse Oximetry 82 L 88 91 Oxygen Delivery Me thod Nasal Cannula Oxygen Flow Rate 4 08/30/23 10:30 08/30/23 10:31 08/30/23 11:00 Temperature Pulse Rate 91 90 85 Pulse Rate [Pulse Oximeter] Respiratory Rate Blood Pressure 142/76 H Blood Pressure [Le ft Upper Arm] Pulse Oximetry 92 92 94 Oxygen Delivery Me thod Oxygen Flow Rate 08/30/23 11:03 08/30/23 11:30 08/30/23 11:32 Temperature Pulse Rate 86 87 88 Pulse Rate [Pulse Oximeter] Respiratory Rate Blood Pressure 125/80 149/84 H Blood Pressure [Le ft Upper Arm] Pulse Oximetry 92 92 93 Oxygen Delivery Me thod Oxygen Flow Rate 08/30/23 12:00 08/30/23 12:02 Temperature Pulse Rate 87 87 Pulse Rate [Pulse Oximeter] Respiratory Rate Blood Pressure 142/116 H Blood Pressure [Le ft Upper Arm] Pulse Oximetry 91 90 Oxygen Delivery Me thod Oxygen Flow Rate Course Vital Signs Vital signs: Initial Vital Signs Temperature 97.4 F L 08/30/23 08:19 Temperature Source Temporal Artery Scan 08/30/23 08:19 Pulse Rate 100 08/30/23 08:19 Respiratory Rate 26 H 08/30/23 08:19 Blood Pressure 148/79 H 08/30/23 08:19 Blood Pressure Mean 102 08/30/23 08:19 Blood Pressure Position Supine 08/30/23 08:19 Pulse Oximetry 83 L 08/30/23 08:19 Oxygen Delivery Method Room Air 08/30/23 08:19 Vital Signs Temperature 97.4 F L 08/30/23 08:19 Pulse Rate 100 08/30/23 08:19 Respiratory Rate 26 H 08/30/23 08:19 Blood Pressure 148/79 H 08/30/23 08:19 Pulse Oximetry 83 L 08/30/23 08:19 Oxygen Delivery Method Room Air 08/30/23 08:19 Temperature 97 F L 08/30/23 12:48 Pulse Rate 88 08/30/23 15:00 Respiratory Rate 20 08/30/23 15:00 Blood Pressure 135/106 H 08/30/23 12:48 Pulse Oximetry 93 08/30/23 15:00 Oxygen Delivery Method Nasal Cannula 08/30/23 15:00 Oxygen Flow Rate 2 08/30/23 15:00 Medical Decision Making MDM Narrative Medical decision making narrative: 1. Trauma. Patient does have a fall down the steps. He fell down approxim ately 5 steps. Are his primary symptoms or pain involving both sides of his chest and both of his knees. Also mild abdominal pain. Also a abrasion to the top of his head. Fortunately CT imaging the patient's head is negative for any intracranial bleed. He is not currently anticoagulated so very low risk for delayed bleeding. C-spine CT shows no acute fracture or subluxation of the cervical s pine and he is neurologically intact. His primary area of pain was in his chest and ribs. Stat portable chest x-ray is obtained was fortunately negative for any obvious pneumothorax/hemothorax. CT scan of the patient's chest and lungs was obtained because I was concerned about possible rib fractures. Fortunately CT scan is normal. No acute traumatic injury. CT scan of the abdomen pelvis is also negative for any acute tremor tic injury or bleeding. No evidence for any spine injury or pelvic injury. X-rays of the patient's knees are negative for any acute fracture. 2. Pulmonary. He does have hypoxia. Unclear etiology. With his chest pain concern is for possible PE. Since he has already had a dye load of contrast for a trauma protocol CT would hold off on CT PA for today. Will administer an empiric dose of Lovenox here in the ER. COVID negative. Chest x-ray and CT are negative for pneumonia, pulmonary edema. He does have chronic lower extremity edema which is actually better lately since being on Lasix. No evidence for CHF. EKG nonischemic and troponin negative. His and daughter report that he actually does have some chronic trouble with hypoxia at night and in the morning at home. He is part way through the process of an outpatient workup through his primary care to get some at home oxygen testing is see if he will qualify for at-home oxygen supplementation. Unclear his hypoxia this or increased simply related to his chronic underlying condition. 3. Cardiac. Monitor and electrocardiogram revealed atrial fibrillation. This is a new diagnosis for this patient. He is rate controlled. Unclear if he could have had AFib with RVR contributing to his fall today or not. He likely would need long-term anticoagulation for stroke prophylaxis. Lovenox administered here in the ER for empiric treatment of possible PE causing hypoxia would also cover for stroke prophylaxis for now He is having chest pain which we suspect is probably posttraumatic. EKG shows AFib but no definite STEMI. Troponin normal. Rule out PE. 4. Id. Urinalysis mildly abnormal. Possible UTI. Rocephin administered. No clear evidence for urosepsis at this point. He does have erythema affecting the skin of both of his shins without actually better than previous and likely related to his chronic lymphedema. No clear evidence for any acute cellulitis or infection 5. He does have an incidental finding of a pulmonary nodule. Discussed with the patient and his family. Will need outpatient follow-up. With persistent hypoxia, generalized weakness, he will require admission for oxygen supplementation support, and further workup. He is accepted by hospitalist service here. Lab Data Labs: Lab Results 08/30/23 08/30/23 08/30/23 Range/Units 08:30 08:49 10:30 WBC 12.32 H (4.50-11.00) K/uL RBC 4.81 (4.30-5.90) m/uL Hgb 14.7 (13.5-17.5) gm/dL Hct 44.3 (37.0-53.0) % MCV 92 (80-100) fL MCH 31 (26-34) pg MCHC 33 (32-36) gm/dL RDW Coeff of Tommy 14.3 (11.5-15.5) % Plt Count 261 (140-440) K/uL Neut % (Auto) 79.9 H (42.0-72.0) % Lymph % (Auto) 9.2 L (20-44) % Gordon % (Auto) 7.5 (0.0-11.0) % Eos % (Auto) 2.2 (0.0-7.0) % Baso % (Auto) 0.3 (0.0-3.0) % Neut # (Auto) 9.80 H (1.7-7.0) K/uL Lymph # (Auto) 1.10 (0.90-2.90) K/uL Gordon # (Auto) 0.90 (0.00-0.90) K/UL Eos # (Auto) 0.30 (0.00-0.50) K/uL Baso # (Auto) 0.00 (0.00-0.30) K/uL Abs Immat Gran (auto) 0.10 (0.00-0.30) K/uL Imm/Tot Granulo (auto) 0.9 % INR 1.05 (0.91-1.10) D-Dimer Quant (PE/DVT) 5.81 H (0.00-0.50) ug/ml VBG pH 7.433 H (7.32-7.43) VBG pCO2 41 (40-50) mmHG VBG pO2 58.4 H (25-47) mmHG VBG HCO3 27 (21-28) mmol/L Sodium 139 (135-149) mmol/L Potassium 3.7 (3.6-5.1) mmol/L Chloride 102 (96-114) mmol/L Carbon Dioxide 27 (20-32) mmol/L Anion Gap 10 (7-15) mEq/L BUN 19 (7-30) mg/dL Creatinine 0.6 (0.5-1.5) mg/dL Estimated Creat Clear 48.74 Estimated GFR 95 ml/min Glucose 196 H (60-115) mg/dL Lactate 1.4 (0.5-1.9) mmol/L Calcium 8.8 (8.4-10.6) mg/dL Magnesium 1.9 (1.5-2.6) mg/dL Total Bilirubin 0.9 (0.1-1.5) mg/dL AST 20 (12-35) U/L ALT 15 (4-50) U/L Alkaline Phosphatase 97 (40-150) U/L Troponin I < 0.01 L (0.01-0.04) ng/mL NT-Pro-B Natriuret Pep 274 pg/mL Total Protein 7.3 (6.0-8.3) g/dL Albumin 3.6 (3.3-5.0) g/dL TSH 1.370 (0.270-4.20) uIU/mL Urine Color Jumana A (Yellow) Urine Appearance Clear (Clear) Urine pH 5.5 (5.0-8.5) Ur Specific [place] 1.020 (1.000-1.030) Urine Protein Trace A (Negative) Urine Glucose (UA) Negative (Negative) Urine Ketones 1+ A (Negative) Urine Blood 1+ A (Negative) Urine Nitrite Negative (Negative) Urine Bilirubin Negative (Negative) Urine Urobilinogen 0.2 (0.2-1.0) Ur Leukocyte Esterase Negative (Negative) Urine RBC 5-10 A (0-2) Urine WBC 5-10 A (0-5) Ur Squamous Epith Cells Few (None-Few) Urine Bacteria Few A (None) Ethyl Alcohol < 0.01 L (0.01-0.03) % SARS-CoV-2 (PCR) Negative SARS-CoV-2 (Negative) Influenza Type A (PCR) Negative PCR FLU A (Negative) Influenza Type B (PCR) Negative PCR FLU B (Negative) RSV (PCR) Negative PCR RSV (Negative) Imaging Data X-ray knee bilaterally: Attestation: I have reviewed the pertinent imaging results. Radiologist's impression: FINDINGS: No fracture, dislocation, or effusion in either knee. Bipartite right patella. 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 Chest x-ray: Attestation: I have reviewed the pertinent imaging results. My impression: Reviewed at the time of image acquisition. No evidence for acute pneumothorax, large hemothorax, or visible rib fracture. Questionable increased opacities in lungs verses poor inspiration Radiologist's impression: IMPRESSION: No radiographic findings to explain the clinical history. Limited study as discussed above. CT chest/abdomen/pelvis: Attestation: I have reviewed the pertinent imaging results. Radiologist's impression: IMPRESSION: 1. No acute traumatic findings. 2. Tiny bladder stone. 3. Right inguinal hernia containing a large portion of the urinary bladder. 4. 6 mm right lower lobe pulmonary nodule. Follow-up guidelines below. CT scan - head: Attestation: I have reviewed the pertinent imaging results. Radiologist's impression: IMPRESSION: No acute intracranial hemorrhage or mass effect. CT C-spine: Attestation: I have reviewed the pertinent imaging results. Radiologist's impression: IMPRESSION: 1. No acute fracture or traumatic subluxation. 2. Multilevel cervical spondylosis. ECG Data Attestation: I personally reviewed and interpreted this ECG as follows: Interpretation: atrial fibrillation. rate 93 TX n/a QRS axis normal axis. No pathologic Q-waves ST segment/T wave: no ST segment elevation or depression. Nonspecific flattening. QTc: 397 Discharge Plan Discharge Clinical Impression: Atrial fibrillation, Weakness, Hypoxia, Acute UTI, Chest pain, Fall
--- NOTE | 2023-08-30 08:54 | CRLHL7_ITS ---
For Patients: As a result of the Century Cures Act, medical imaging exams and procedure reports are released immediately into your electronic medical record. You may view this report before your referring provider. If you have questions, please contact your health care provider. INDICATION: Fall down stairs. Chest and abdominal pain. TECHNIQUE: CT chest, abdomen and pelvis acquired with 100 mL Isovue 370 IV contrast. COMPARISON: None. FINDINGS: CHEST: Cardiovascular structures: Heart size is normal. Thoracic aorta and main pulmonary artery are normal in caliber. No evidence for vascular injury. Dense coronary artery calcifications. Mediastinum and janae: No mediastinal hematoma. Lungs and pleura: Shallow inspiration with bilateral dependent atelectasis. 6 mm nodule right lower lobe image 72 series 5. Benign calcified granuloma along the right major fissure. No pneumothorax. Chest wall and axilla: No mass or adenopathy. Right greater than left gynecomastia. No evidence for significant soft tissue injury. Bones: No acute fractures. Chronic appearing inferior endplate compression/Schmorl`s node at T2 and chronic wedge compression T3. ABDOMEN AND PELVIS: Liver: Couple of tiny low-density lesions in the left hepatic lobe are too small to be characterized but most likely benign. Gallbladder and bile ducts: Unremarkable. Pancreas: Unremarkable. Spleen: Unremarkable. Adrenal glands: Unremarkable. Kidneys: Small bilateral cysts. GI tract: Colonic diverticulosis but no diverticulitis. Vascular structures: Unremarkable. Lymph nodes: Unremarkable. Miscellaneous: There is a right inguinal hernia containing a large portion of the urinary bladder. Pelvic Organs: Tiny stone in the bladder. Bones: No suspicious bone lesions. Unremarkable for age. IMPRESSION: 1. No acute traumatic findings. 2. Tiny bladder stone. 3. Right inguinal hernia containing a large portion of the urinary bladder. 4. 6 mm right lower lobe pulmonary nodule. Follow-up guidelines below. [employer] GUID[employer]INES - SOLID NODULES: SINGLE LOW RISK - nodule less than 6 mm: No routine follow-up. - nodule 6-8 mm: CT at 6-12 months, then consider CT at 18-24 months. - nodule greater than 8 mm: Consider CT at 3 months, PET/CT or tissue sampling. SINGLE HIGH RISK - nodule less than 6 mm: Optional CT at 12 months. - nodule 6-8 mm: CT at 6-12 months, then CT at 18-24 months. - nodule greater than 8 mm: Consider CT at 3 months, PET/CT or tissue sampling. MULTIPLE LOW RISK - nodule less than 6 mm: No routine follow-up. - nodule 6-8 mm: CT at 3-6 months, then consider CT at 18-24 months. - nodule greater than 8 mm: CT at 3-6 months, then consider CT at 18-24 months. MULTIPLE HIGH RISK - nodule less than 6 mm: Optional CT at 12 months. - nodule 6-8 mm: CT at 3-6 months, then at 18-24 months. - nodule greater than 8 mm: CT at 3-6 months, then at 18-24 months. Please note that all CT scans at this facility use dose modulation, iterative reconstruction, and/or weight-based dosing when appropriate to reduce radiation dose to as low as reasonably achievable. Dictated by Jarad Saleh MD @ 08/30/2023 10:24:11 AM (Electronically Signed)
--- NOTE | 2023-08-30 08:54 | CRLHL7_ITS ---
For Patients: As a result of the Century Cures Act, medical imaging exams and procedure reports are released immediately into your electronic medical record. You may view this report before your referring provider. If you have questions, please contact your health care provider. INDICATION: Fall. TECHNIQUE: Noncontrast CT images acquired through the brain. COMPARISON: None. FINDINGS: Artifact degrades image quality. [id number] diffuse cerebral volume loss. No mass effect or midline shift. The baron-white differentiation is maintained. No acute intracranial hemorrhage or pathologic extra-axial fluid collection. Patchy hypoattenuation in the supratentorial white matter, suggestive of moderate chronic microvascular ischemic changes. Dense intracranial atherosclerotic calcifications. Chronic appearing lacunar infarction inferior left cerebellar hemisphere. The globes are symmetric. The calvarium is intact. Small left maxillary sinus retention cyst. Mild paranasal sinus mucosal thickening. The mastoid air cells are clear. IMPRESSION: No acute intracranial hemorrhage or mass effect. Please note that all CT scans at this facility use dose modulation, iterative reconstruction, and/or weight-based dosing when appropriate to reduce radiation dose to as low as reasonably achievable. Dictated by Carlos Damon MD @ 08/30/2023 10:09:21 AM (Electronically Signed)
--- NOTE | 2023-08-30 08:55 | CRLHL7_ITS ---
For Patients: As a result of the Century Cures Act, medical imaging exams and procedure reports are released immediately into your electronic medical record. You may view this report before your referring provider. If you have questions, please contact your health care provider. INDICATION: Fall. TECHNIQUE: Noncontrast CT images acquired through the cervical spine. COMPARISON None. FINDINGS: Diffuse osseous demineralization. The cervical lordosis is maintained. Mild rightward cervical curvature. No acute fracture or traumatic subluxation. Grade 1 anterolisthesis C4 on C5. Moderately advanced disc height loss at C5-6. Shallow multilevel posterior disc osteophyte complexes contribute to mild spinal canal narrowing. Multilevel uncinate spurring and facet arthropathy contribute up to [id number] neural foraminal narrowing at C4-5 and C5-6. The lung apices are clear. IMPRESSION: 1. No acute fracture or traumatic subluxation. 2. Multilevel cervical spondylosis. Please note that all CT scans at this facility use dose modulation, iterative reconstruction, and/or weight-based dosing when appropriate to reduce radiation dose to as low as reasonably achievable. Dictated by Carlos Damon MD @ 08/30/2023 10:15:07 AM (Electronically Signed)
--- NOTE | 2023-08-30 08:56 | CRLHL7_ITS ---
For Patients: As a result of the Cures Act, medical imaging exams and procedure reports are released immediately into your electronic medical record. You may view this report before your referring provider. If you have questions, please contact your health care provider. INDICATION: Fall downstairs, knee pain. TECHNIQUE: Three views of each knee. FINDINGS: No fracture, dislocation, or effusion in either knee. Bipartite right patella. 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 Dictated by Jarad Saleh MD @ 08/30/2023 10:26:22 AM (Electronically Signed)
[2023-08-30 09:17] LABS: HCO3 VBG 27 mmol/L (21-28); Lactate* 1.4 mmol/L (0.5-1.9); PCO2 VBG 41 mmHG (40-50); PO2 VBG 58.4 mmHG (25-47); pH VBG 7.433 (7.32-7.43)
[2023-08-30 09:18] LABS: Basophils Percent Auto 0.3 % (0.0-3.0); Eosinophils Percent Auto 2.2 % (0.0-7.0); Hematocrit 44.3 % (37.0-53.0); Hemoglobin* 14.7 gm/dL (13.5-17.5); Immature Granulocytes Pct Auto 0.9 %; Lymphocytes Percent Auto 9.2 % (20-44); Mean Corpuscular HGB Conc 33 gm/dL (32-36); Mean Corpuscular Hemoglobin 31 pg (26-34); Mean Corpuscular Volume 92 fL (80-100); Monocytes Percent Auto 7.5 % (0.0-11.0); Neutrophils Percent Auto 79.9 % (42.0-72.0); Platelet Count* 261 K/uL (140-440); RDW Coefficient of Variation % 14.3 % (11.5-15.5); Red Blood Count 4.81 m/uL (4.30-5.90); White Blood Count* 12.32 K/uL (4.50-11.00)
[2023-08-30 09:19] LABS: Slide Review Reflex No
[2023-08-30 09:20] LABS: INR 1.05 (0.91-1.10); Prothrombin Time 14.4 Seconds
[2023-08-30] MEDS: 0.9 % SODIUM CHLORIDE 500 ML 500 ML IV (09:25)
[2023-08-30] MEDS: KETOROLAC 15 MG/ML inj IVP (09:29)
[2023-08-30 09:44] LABS: PCR FLU A Negative PCR FLU A (Negative); PCR FLU B Negative PCR FLU B (Negative); PCR RSV Negative PCR RSV (Negative)
[2023-08-30 09:48] LABS: SARS PCR* Negative SARS-CoV-2 (Negative)
[2023-08-30 09:54] LABS: Albumin* 3.6 g/dL (3.3-5.0); Chloride* 102 mmol/L (96-114); Sodium* 139 mmol/L (135-149)
[2023-08-30 09:55] LABS: Potassium* 3.7 mmol/L (3.6-5.1)
[2023-08-30 09:57] LABS: Alanine Aminotransferase* 15 U/L (4-50); Alkaline Phosphatase* 97 U/L (40-150); Anion Gap 10 mEq/L (7-15); Aspartate Amino Transferase* 20 U/L (12-35); Bilirubin Total* 0.9 mg/dL (0.1-1.5); Blood Urea Nitrogen* 19 mg/dL (7-30); Carbon Dioxide* 27 mmol/L (20-32); Creatinine* 0.6 mg/dL (0.5-1.5); Est. Creatinine Clearance* 48.74; Estimated Glomerular Filt Rate 95 ml/min; Glucose* 196 mg/dL (60-115); Total Protein* 7.3 g/dL (6.0-8.3)
[2023-08-30 09:58] LABS: Calcium* 8.8 mg/dL (8.4-10.6)
[2023-08-30 10:13] LABS: Ethanol* < 0.01 % (0.01-0.03); NT Pro B Type NatriureticPept* 274 pg/mL; Troponin I* < 0.01 ng/mL (0.01-0.04)
[2023-08-30 10:46] LABS: Appearance Urine Clear (Clear); Bilirubin Urine Negative (Negative); Blood Urine 1+ (Negative); Color Urine Amber (Yellow); Glucose Urine Negative (Negative); Ketones Urine 1+ (Negative); Leukocyte Esterase Urine Negative (Negative); Nitrite Urine Negative (Negative); Protein Urine Trace (Negative); Urobilinogen Urine 0.2 (0.2-1.0); pH Urine 5.5 (5.0-8.5)
[2023-08-30 11:04] LABS: Bacteria Urine Few; Squamous Epithelial Cell Urine Few (None-Few)
[2023-08-30] MEDS: cefTRIAXone 1 GM in 0.9 % SODIUM CHLORIDE Mini-bag 100 ML IVPB (12:19)
[2023-08-30] MEDS: ENOXAPARIN 100 MG/ML INJ SUBCUT (12:20)
[2023-08-30 14:16] LABS: D Dimer Quantitative* 5.81 ug/ml (0.00-0.50)
[2023-08-30] MEDS: ACETAMINOPHEN 325 MG TABLET 650 MG PO (15:08)
--- NOTE | 2023-08-30 16:47 | P.IMHP_ITS ---
Hospitalist- H&P: CARLOS History of Present Illness Date Seen: 08/30/23 Chief complaint: Fall Narrative: Cristofer Yang is a 87 year old male acute on chronic weakness, heart disease, peripheral artery disease, chronic lower extremity edema, COPD, hypertension admitted to the hospital after a fall this morning. He woke up around 6:00 a.m. and was going up the stairs in his home. His thinks that he was confused because he normally is sleeping at 6:00 a.m. and when he gets up at night he usually does not go up the stairs anyway. He fell down several stairs. He reports that he was not feeling ill recently or before his fall. He did not lose consciousness. Did hit his head. His only complaint following the fall is that he has some mid sternal chest pain. This is worse when he coughs or takes a deep breath tries to sit up in bed or roll over in bed or move his arms. In the emergency department ER evaluation for the trauma which was unremarkable showing no apparent serious injury, fracture or bleeding. In the emergency department he was found to be hypoxic. Because this he was admitted to the hospital for further evaluation. He has had problems with hypoxia prior to admission but has not been on oxygen. His notes that when he wakes up in the morning his O2 sats are typically 88% to 89%. He reports not feeling short of breath. He does not have cough or fever, sore throat or congestion. Chest pain related to his fall this morning as noted above. He is not otherwise recently had exertional chest pain. He does carry a diagnosis of coronary disease. He was told in the past he had angina but has not had any coronary intervention. He does occasionally use nitroglycerin for this. Also in the emergency department he was found to be in atrial fibrillation. His heart rate was controlled. This is a new diagnosis for him. He has had no previous history of thrombosis, DVT, PE. He does have a history of problems with bleeding. In the past when he was taking aspirin he did have some rectal bleeding apparently. Unclear whether this had any further evaluation. He has chronic weakness. He has been getting home OT and PT for some time. They have recently signed off on him. Part other treatment was managing his chronic lymphedema which he reports is much better now that it has been in the past. He normally walks with a walker or a cane at home. He has been advised use a walker rather than a cane but often uses the cane instead. Review of Systems Narrative: Complete review of systems is unremarkable except as noted above [facility] Medical History (Updated 08/30/23 @ 17:05 by Burke Chaudhari MD) Sleep apnea ?G47.30 - Sleep apnea, unspecified (ICD-10) Chronic acquired lymphedema ?I89.0 - Lymphedema, not elsewhere classified (ICD-10) Health care directive on file ?Z78.9 - Other specified health status (ICD-10) Venous stasis ulcer ?I83.009 - Varicose veins of unspecified lower extremity with ulcer of unspecified site (ICD-10) ?L97.909 - Non-pressure chronic ulcer of unspecified part of unspecified lower leg with unspecified severity (ICD-10) CAD (coronary artery disease) ?I25.10 - Atherosclerotic heart disease of [place] coronary artery without angina pectoris (ICD-10) COPD (chronic obstructive pulmonary disease) ?J44.9 - Chronic obstructive pulmonary disease, unspecified (ICD-10) Peripheral arterial occlusive disease ?I77.9 - Disorder of arteries and arterioles, unspecified (ICD-10) BPH (benign prostatic hyperplasia) ?N40.0 - Benign prostatic hyperplasia without lower urinary tract symptoms (ICD-10) Type 2 diabetes mellitus without complication (05/24/15) ?E11.9 - Type 2 diabetes mellitus without complications (ICD-10) Non-pressure ulcer of right lower extremity with fat layer exposed ?L97.912 - Non-pressure chronic ulcer of unspecified part of right lower leg with fat layer exposed (ICD-10) Cellulitis ?L03.90 - Cellulitis, unspecified (ICD-10) Surgical History History of umbilical hernia repair ?Z98.890 - Other specified postprocedural states (ICD-10) ?Z87.19 - Personal history of other diseases of the digestive system (ICD-10) History of tonsillectomy ?Z90.89 - Acquired absence of other organs (ICD-10) Family History Father Myocardial infarction, Onset Age: 87 Mother Pulmonary embolism, Onset Age: 86 Brother Pneumonia, Onset Age: 78 Social History (Updated 08/30/23 @ 16:57 by Burke Chaudhari MD) Narrative: 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 Code status is DNR Does not drink alcohol Does not use illicit drugs Former smoker- quit over 30 years ago , lives with his in [place]. He has recently been getting relatively intensive PT and OT and home health nursing treatment for his lymphedema and his weakness. Retried from employment- worked in a [employer] What is your current living situation?: I presently have a place to live Problems where you live: no known problems Problems where you live details: N/A In the past 12 months, utilities in danger of being shut off: no In past 12 months, lack of transportation kept you from medical appts, meetings, work, or getting things needed for daily living: no In the past 12 mos, have been you worried that your food would run out before you had money to buy more?: never true In the past 12 mos, the food you bought just didn't last and you didn't have money to buy more?: never true Highest level of school completed/degree received: high school graduate Smoking Status: Former smoker Do you use any of these nicotine containing products: None Second hand tobacco smoke exposure: No How often do you have a drink containing alcohol: never AUDIT-C Alcohol total score: 0 Non-prescribed substance use: denies use Caffeine: Yes (1 can soda daily) How often does anyone, including family, friends and others, physically hurt you : never How often does anyone, including family, friends and others, insult or talk down to you: never How often does anyone, including family, friends and others, threaten you with harm: never How often does anyone, including family, friends and others, scream or curse at you: never Little interest or pleasure in doing things: not at all Feeling down, depressed, or hopeless: not at all Do you think of yourself as: straight/heterosexual Gender Identity: male service: Yes Meds Home Medications and Allergies Home Medications Medication Instructions Recorded Confirmed Type albuterol sulfate 90 mcg/actuation 2 puff inhalation Q4H PRN 05/27/22 08/30/23 History aerosol inhaler cholecalciferol (vitamin D3) 25 25 mcg PO DAILY 06/10/22 08/30/23 History mcg (1,000 unit) capsule ibuprofen 200 mg tablet 400 mg PO Q6H PRN 06/10/22 08/30/23 History multivitamin (Daily Multi-Vitamin 1 tab PO DAILY 07/12/22 08/30/23 History tablet) zinc gluconate 30 mg tablet 30 mg PO DAILY 07/12/22 08/30/23 History pumpkin seed extract-soy germ 300 2 cap PO DAILY 08/23/22 08/30/23 History mg capsule (Azo Bladder Control) citalopram 20 mg tablet 20 mg PO HS 08/30/23 08/30/23 History fluticasone propionate 230 3 inh inhalation HS 08/30/23 08/30/23 History mcg-salmeterol 21 mcg/actuation HFA inhaler (Advair HFA) metoprolol succinate 25 mg 25 mg PO DAILY@12 08/30/23 08/30/23 History tablet,extended release 24 hr montelukast 10 mg tablet 10 mg PO HS 08/30/23 08/30/23 History potassium chloride 10 mEq 10 meq PO QPM 08/30/23 08/30/23 History capsule,extended release psyllium husk 3.4 gram/5.4 gram 1 tbsp PO DAILY PRN 08/30/23 08/30/23 History oral powder (Metamucil) rosuvastatin 5 mg tablet 5 mg PO QPM 08/30/23 08/30/23 History Allergies Allergy/AdvReac Type Severity Reaction Status Date / Time Angiotensin-converting Allergy Uncoded 08/12/23 14:05 enzyme inhibitor HMG-CoA reductase inhibitor Allergy Uncoded 08/12/23 14:05 Influenza A virus Allergy Uncoded 08/12/23 14:05 Exam Narrative: Exam Narrative: He is alert and appears in no distress. He gives his own history with his answering many of the questions. He seems forgetful about a number of recent details in his health history. Head has some abrasions over the top of the scalp with no obvious deformity and minimal tenderness to palpation. Moves his neck fairly well without significant discomfort. He has no facial asymmetry. Extraocular movements are full. Oropharynx with very small airway. Neck is supple without mass or adenopathy. Respirations with diminished breath sounds but otherwise clear to auscultation. No marked wheezing. No consolidation. Cardiovascular: S1, S2,irregular rate and rhythm. Abdomen: Bowel sounds are present. Abdomen is soft without tenderness or mass. External genitalia normal. Extremities with moderate bilateral edema. Patient and family note that this is much better than his baseline was in the not too distant past. Is intact pedal pulses. Strength testing shows mild diffuse weakness in all tested muscle groups, shoulders, elbows, wrists, fingers, hips, knees, ankles and great toes. Const: Vital Signs, click to edit/add: Vital Signs - 24 hr 08/30/23 08:19 08/30/23 09:20 08/30/23 09:30 Temperature 97.4 F L Pulse Rate 88 92 Pulse Rate [Pulse Oximeter] 100 Respiratory Rate 26 H Blood Pressure Blood Pressure [Le ft Arm] Blood Pressure [Le ft Upper Arm] 148/79 H Pulse Oximetry 83 L 92 89 Oxygen Delivery Me thod Room Air Nasal Cannula Nasal Cannula Oxygen Flow Rate 4 4 08/30/23 09:32 08/30/23 09:33 08/30/23 10:24 Temperature Pulse Rate 88 87 75 Pulse Rate [Pulse Oximeter] Respiratory Rate Blood Pressure 151/82 H Blood Pressure [Le ft Arm] Blood Pressure [Le ft Upper Arm] Pulse Oximetry 82 L 88 91 Oxygen Delivery Me thod Nasal Cannula Oxygen Flow Rate 4 08/30/23 10:30 08/30/23 10:31 08/30/23 11:00 Temperature Pulse Rate 91 90 85 Pulse Rate [Pulse Oximeter] Respiratory Rate Blood Pressure 142/76 H Blood Pressure [Le ft Arm] Blood Pressure [Le ft Upper Arm] Pulse Oximetry 92 92 94 Oxygen Delivery Me thod Oxygen Flow Rate 08/30/23 11:03 08/30/23 11:30 08/30/23 11:32 Temperature Pulse Rate 86 87 88 Pulse Rate [Pulse Oximeter] Respiratory Rate Blood Pressure 125/80 149/84 H Blood Pressure [Le ft Arm] Blood Pressure [Le ft Upper Arm] Pulse Oximetry 92 92 93 Oxygen Delivery Me thod Oxygen Flow Rate 08/30/23 12:00 08/30/23 12:02 08/30/23 12:48 Temperature 97 F L Pulse Rate 87 87 Pulse Rate [Pulse Oximeter] 84 Respiratory Rate 20 Blood Pressure 142/116 H Blood Pressure [Le ft Arm] 135/106 H Blood Pressure [Le ft Upper Arm] Pulse Oximetry 91 90 93 Oxygen Delivery Me thod Nasal Cannula Oxygen Flow Rate 2 08/30/23 15:00 Temperature Pulse Rate Pulse Rate [Pulse Oximeter] Respiratory Rate 20 Blood Pressure Blood Pressure [Le ft Arm] Blood Pressure [Le ft Upper Arm] Pulse Oximetry 93 Oxygen Delivery Me thod Nasal Cannula Oxygen Flow Rate 2 Documenting provider has reviewed patient's vital signs: yes Hospitalist - H&P: Result Labs Labs: Short CBC 08/30/23 Range/Units 08:30 WBC 12.32 H (4.50-11.00) K/uL Hgb 14.7 (13.5-17.5) gm/dL Hct 44.3 (37.0-53.0) % Plt Count 261 (140-440) K/uL BMP 08/30/23 08:30 Sodium 139 Potassium 3.7 Chloride 102 Carbon Dioxide 27 BUN 19 Creatinine 0.6 Glucose 196 H Calcium 8.8 Cardiac Enzymes 08/30/23 Range/Units 08:30 Troponin I < 0.01 L (0.01-0.04) ng/mL Liver Function 08/30/23 Range/Units 08:30 Total Bilirubin 0.9 (0.1-1.5) mg/dL AST 20 (12-35) U/L ALT 15 (4-50) U/L Alkaline Phosphatase 97 (40-150) U/L Albumin 3.6 (3.3-5.0) g/dL Urine 08/30/23 Range/Units 10:30 Urine Color [place] A (Yellow) Urine Appearance Clear (Clear) Urine pH 5.5 (5.0-8.5) Ur Specific [place] 1.020 (1.000-1.030) Urine Protein Trace A (Negative) Urine Glucose (UA) Negative (Negative) Assessment and Plan Assessment and plan (1) Hypoxia: Problem comment: Cause of the hypoxia is uncertain. Possibly multifactorial. Untreated and undiagnosed sleep apnea, COPD, PE all possibilities. Repeat chest CT with contrast tomorrow for PE if creatinine is okay Status: Acute (2) Weakness: Problem comment: Acute on chronic. Baseline is uncertain but it sounds like he needs to walk with a walker. Acutely worse due to acute illness and injury. Status: Acute (3) Acute UTI: Problem comment: Treat pending cultures Status: Acute (4) Chest pain: Problem comment: Presenting as a chest wall injury with tenderness over the lower sternum, pain with any movement involving that area. Will also evaluate for PE and coronary artery disease/ACS Status: Acute (5) Atrial fibrillation: Problem comment: Newly discovered atrial fibrillation 08/30/2023. Asymptomatic. Rate controlled. Check echo, start anticoagulation Status: Acute (6) Fall: Problem comment: Fall at home likely due to weakness in the early hours this morning. PT and OT to assess. Patient appears quite weak and frail. Discussed with patient the possibility that he might need senior living facility placement depending on his ability to move independently Status: Acute (7) Sleep apnea: Problem comment: Recommend outpatient sleep study Status: Suspected Plan Patient is admitted to the hospital for ongoing evaluation management of hypoxic respiratory failure, acute on chronic weakness, UTI, chest pain. Total time spent today is 80 minutes, 50 minutes in coordination of care and discussing with patient, family and other providers ongoing evaluation management
[2023-08-30 17:29] LABS: Magnesium* 1.9 mg/dL (1.5-2.6)
[2023-08-30] MEDS: POTASSIUM CHLORIDE 10 MEQ CAPSULE ER PO (18:38)
--- NOTE | 2023-08-30 18:43 | PC.NURSE ---
Pt admitted to M/S this afternoon. He is oriented to person and place, but states it is 2002. BP's elevated and pt requiring 2L/O2 via NC to maintain SpO2 92%. Heavy breathing with exertion, SpO2 decreased to mid 80's with activity. Pt initially denied pain but later begain c/o of center midline CP he was unable to rate. Area is tender to the touch and ice pack applied as pt is unsure if he hit it during his fall this morning. Mild abrasion to the top of his head, ALMA. Large dark purple area across both buttocks/coccyx/and toward scrotum. Area is blanchable and no open areas present. states she applies a barrier cream BID but pt also spends a lot of time sitting in his chair. Pt is intermittently confused and impulsive. He fiddles with tele wires and IV tubing but has not made attempts to pull them out. Needs frequent reminders not to attempt to climb out of bed without assistance. Ambulated to BR with walker, GB, and heavy assist x2. Stated he felt the urge to void but was unable to void. Post void bladder scan= 35cc. 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
[2023-08-30] MEDS: CITALOPRAM HYDROBROMIDE 20 MG TABLET PO (21:57)
[2023-08-30] MEDS: MONTELUKAST 10 MG TABLET PO (21:57)
[2023-08-30] MEDS: SODIUM CHLORIDE 0.9 % (FLUSH) 10 ML SYRINGE 5 ML IVF (21:58)
[2023-08-31] VITALS (7 sets, daily range): BP systolic 130–159; BP diastolic 76–96; PULSE 62–88; RESP 20–24; TEMP 36.1–36.9; O2SAT 90–93
[2023-08-31] MEDS: ACETAMINOPHEN 325 MG TABLET 650 MG PO ×3 (02:16→21:54)
[2023-08-31] MEDS: ENOXAPARIN 120 MG/0.8 ML INJ SUBCUT (02:28)
[2023-08-31 07:18] LABS: Basophils Percent Auto 0.3 % (0.0-3.0); Eosinophils Percent Auto 1.8 % (0.0-7.0); Hematocrit 43.9 % (37.0-53.0); Hemoglobin* 14.2 gm/dL (13.5-17.5); Immature Granulocytes Pct Auto 0.5 %; Lymphocytes Percent Auto 13.4 % (20-44); Mean Corpuscular HGB Conc 32 gm/dL (32-36); Mean Corpuscular Hemoglobin 30 pg (26-34); Mean Corpuscular Volume 93 fL (80-100); Monocytes Percent Auto 9.7 % (0.0-11.0); Neutrophils Percent Auto 74.3 % (42.0-72.0); Platelet Count* 329 K/uL (140-440); RDW Coefficient of Variation % 14.2 % (11.5-15.5); Red Blood Count 4.71 m/uL (4.30-5.90); White Blood Count* 11.45 K/uL (4.50-11.00)
[2023-08-31 07:25] LABS: Slide Review Reflex No
[2023-08-31 07:30] LABS: Chloride* 107 mmol/L (96-114); Potassium* 4.6 mmol/L (3.6-5.1); Sodium* 140 mmol/L (135-149)
[2023-08-31 07:33] LABS: Creatinine* 0.7 mg/dL (0.5-1.5); Est. Creatinine Clearance* 48.74; Estimated Glomerular Filt Rate 90 ml/min
[2023-08-31 07:34] LABS: Anion Gap 6 mEq/L (7-15); Blood Urea Nitrogen* 21 mg/dL (7-30); Calcium* 8.9 mg/dL (8.4-10.6); Carbon Dioxide* 27 mmol/L (20-32); Glucose* 125 mg/dL (60-115)
[2023-08-31 07:36] LABS: C Reactive Protein* 6.4 mg/dL (0.5-1.0)
[2023-08-31 07:44] LABS: Troponin I* 0.01 ng/mL (0.01-0.04)
[2023-08-31 07:46] LABS: HCO3 VBG 26 mmol/L (21-28); Lactate* 0.7 mmol/L (0.5-1.9); PCO2 VBG 34 mmHG (40-50); PO2 VBG 79.6 mmHG (25-47); pH VBG 7.485 (7.32-7.43)
--- NOTE | 2023-08-31 08:03 | PC.NURSE ---
Ambulated to bathroom with walker, gait belt and assist of 2. Reported pain in lower legs, upper abdomen and chest with repositioning. PRN Tylenol given. VSS. 93% on 2 LPM via NC.
--- NOTE | 2023-08-31 08:09 | CRLHL7_ITS ---
For Patients: As a result of the Century Cures Act, medical imaging exams and procedure reports are released immediately into your electronic medical record. You may view this report before your referring provider. If you have questions, please contact your health care provider. INDICATION: Hypoxia. TECHNIQUE: CT chest PE was acquired with 95 cc Isovue 370 IV contrast. COMPARISON: 08/30/2023. FINDINGS: Heart and vasculature: Contrast opacification of the pulmonary arterial tree is adequate. No sign of pulmonary embolism. Cardiomegaly and multi-vessel moderate to severe atherosclerotic coronary calcifications. Lungs and pleura: Persistent unchanged solid right lower lobe nodule measuring 8 mm on the current exam (5:120). Six-month follow-up chest CT is recommended. Persistent unchanged posterior segment left lower lobe consolidation consistent with pneumonia. Differential diagnostic considerations include aspiration pneumonitis. Bilateral upper lobe ground-glass opacities abutting the oblique fissures in a dependent gradient distribution associated with pulmonary vascular cephalization altogether suggesting congestive heart failure. Lymph nodes/mediastinum: No mediastinal, hilar, or axillary adenopathy. Chest wall: Gynecomastia. Upper abdomen: No acute or significant findings. Bones: Unremarkable for age. IMPRESSION: 1. No evidence of pulmonary embolism. 2. Persistent posterior segment left lower lobe consolidation consistent with pneumonia. Aspiration pneumonitis is included in the differential given the location of this finding. 3. Cardiomegaly, atherosclerotic coronary artery calcifications and bilateral upper lobe findings, described above, consistent with congestive heart failure in the correct clinical setting. 4. Note is again made of an incidental right lower lobe solid nodule for which a 6 month follow up noncontrast chest CT is recommended according to published management guidelines. Recommendation: Six-month follow-up noncontrast chest CT. Please note that all CT scans at this facility use dose modulation, iterative reconstruction, and/or weight-based dosing when appropriate to reduce radiation dose to as low as reasonably achievable. Dictated by Gerson Lui MD @ 08/31/2023 10:55:28 AM (Electronically Signed)
--- NOTE | 2023-08-31 08:19 | PM.IMPN1 ---
Progress Note: A&P Assessment and plan (1) Hypoxia: Problem details: Hypoxia appears to be due to pneumonia. Suspect aspiration. On ceftriaxone. Added azithromycin for community-acquired pneumonia. CT shows no PE Status: Acute (2) Knee injury: Problem details: Bilateral knee injury, left greater than right. No acute findings on radiographs. PT and OT to evaluate Status: Acute (3) Weakness: Problem details: Acute on chronic. Baseline is uncertain but it sounds like he needs to walk with a walker. Acutely worse due to acute illness and injury. Status: Acute (4) Abdominal tenderness: Problem details: Right-sided abdominal tenderness after his fall. No obvious bruising. CT scan showed no serious internal injury. Continue to monitor. Status: Acute (5) Urinary tract infection: Problem details: Cultures growing less than 10,000 colonies. Likely not the cause of illness Status: Acute (6) Atrial fibrillation: Problem details: Newly discovered atrial fibrillation 08/30/2023. Asymptomatic. Rate controlled. Check echo, start anticoagulation Status: Acute (7) Enrolled in chronic care management: Status: Chronic (8) Chest pain: Problem details: Presenting as a chest wall injury with tenderness over the lower sternum, pain with any movement involving that area. Will also evaluate for PE and coronary artery disease/ACS Status: Acute (9) CAD (coronary artery disease): Status: Chronic (10) Fall: Problem details: Fall at home likely due to weakness in the early hours this morning. PT and OT to assess. Patient appears quite weak and frail. Discussed with patient the possibility that he might need shelter facility placement depending on his ability to move independently Status: Acute (11) Sleep apnea: Problem details: Recommend outpatient sleep study Status: Suspected (12) Cognitive impairment: Problem details: [place]. Assess functional status for living with his 's supervision Status: Acute Plan Continue in hospital for IV antibiotics and oxygen. Continue to address weakness and disability. May need shelter facility for rehab if not clinically improving Time Spent With Patient Total time spent: Total time spent today is 50 minutes, 30 minutes in coordination of care and discussing with patient and other providers management of hypoxia and debility Subjective Date Seen: 08/31/23 Interval history: Cristofer Yang is a 87 year old male acute on chronic weakness, heart disease, peripheral artery disease, chronic lower extremity edema, COPD, hypertension admitted to the hospital after a fall this morning. He woke up around 6:00 a.m. and was going up the stairs in his home. His thinks that he was confused because he normally is sleeping at 6:00 a.m. and when he gets up at night he usually does not go up the stairs anyway. He fell down several stairs. He reports that he was not feeling ill recently or before his fall. He did not lose consciousness. Did hit his head. His only complaint following the fall is that he has some mid sternal chest pain. This is worse when he coughs or takes a deep breath tries to sit up in bed or roll over in bed or move his arms. In the emergency department ER evaluation for the trauma which was unremarkable showing no apparent serious injury, fracture or bleeding. In the emergency department he was found to be hypoxic. Because this he was admitted to the hospital for further evaluation. He has had problems with hypoxia prior to admission but has not been on oxygen. His notes that when he wakes up in the morning his O2 sats are typically 88% to 89%. He reports not feeling short of breath. He does not have cough or fever, sore throat or congestion. Chest pain related to his fall this morning as noted above. He is not otherwise recently had exertional chest pain. He does carry a diagnosis of coronary disease. He was told in the past he had angina but has not had any coronary intervention. He does occasionally use nitroglycerin for this. Also in the emergency department he was found to be in atrial fibrillation. His heart rate was controlled. This is a new diagnosis for him. He has had no previous history of thrombosis, DVT, PE. He does have a history of problems with bleeding. In the past when he was taking aspirin he did have some rectal bleeding apparently. Unclear whether this had any further evaluation. He has chronic weakness. He has been getting home OT and PT for some time. They have recently signed off on him. Part other treatment was managing his chronic lymphedema which he reports is much better now that it has been in the past. He normally walks with a walker or a cane at home. He has been advised use a walker rather than a cane but often uses the cane instead. This morning patient is confused as to his location and circumstances. Is reporting lower sternal chest pain. Also complaining of knee pain when he moves his knees. He is not aware of dyspnea though required oxygen overnight. Exam Narrative: Exam Narrative: He arouses to voice. Not oriented to his place or circumstances. Speech is fluent. Respirations are clear to auscultation. Cardiovascular: S1, S2, irregularly irregular. Abdomen is soft. He reports tenderness on the right side of his abdomen with palpation. He has weakness in both legs and reports more pain in his left knee than his right. Const: Vital Signs, click to edit/add: Vital Signs - 24 hr 08/30/23 09:20 08/30/23 09:30 08/30/23 09:32 Temperature Pulse Rate 88 92 88 Pulse Rate [Pulse Oximeter] Respiratory Rate Blood Pressure 151/82 H Blood Pressure [Le ft Arm] Pulse Oximetry 92 89 82 L Oxygen Delivery Me thod Nasal Cannula Nasal Cannula Nasal Cannula Oxygen Flow Rate 4 4 4 08/30/23 09:33 08/30/23 10:24 08/30/23 10:30 Temperature Pulse Rate 87 75 91 Pulse Rate [Pulse Oximeter] Respiratory Rate Blood Pressure Blood Pressure [Le ft Arm] Pulse Oximetry 88 91 92 Oxygen Delivery Me thod Oxygen Flow Rate 08/30/23 10:31 08/30/23 11:00 08/30/23 11:03 Temperature Pulse Rate 90 85 86 Pulse Rate [Pulse Oximeter] Respiratory Rate Blood Pressure 142/76 H 125/80 Blood Pressure [Le ft Arm] Pulse Oximetry 92 94 92 Oxygen Delivery Me thod Oxygen Flow Rate 08/30/23 11:30 08/30/23 11:32 08/30/23 12:00 Temperature Pulse Rate 87 88 87 Pulse Rate [Pulse Oximeter] Respiratory Rate Blood Pressure 149/84 H Blood Pressure [Le ft Arm] Pulse Oximetry 92 93 91 Oxygen Delivery Me thod Oxygen Flow Rate 08/30/23 12:02 08/30/23 12:48 08/30/23 15:00 Temperature 97 F L Pulse Rate 87 Pulse Rate [Pulse Oximeter] 84 Respiratory Rate 20 20 Blood Pressure 142/116 H Blood Pressure [Le ft Arm] 135/106 H Pulse Oximetry 90 93 93 Oxygen Delivery Me thod Nasal Cannula Nasal Cannula Oxygen Flow Rate 2 2 08/30/23 15:00 08/30/23 23:00 08/30/23 23:00 Temperature Pulse Rate 65 Pulse Rate [Pulse Oximeter] 88 Respiratory Rate 20 Blood Pressure Blood Pressure [Le ft Arm] Pulse Oximetry 93 Oxygen Delivery Me thod Nasal Cannula Oxygen Flow Rate 2 08/31/23 02:28 08/31/23 03:00 08/31/23 07:00 Temperature 98.4 F Pulse Rate 62 Pulse Rate [Pulse Oximeter] 88 Respiratory Rate 24 Blood Pressure Blood Pressure [Le ft Arm] 159/96 H Pulse Oximetry 93 Oxygen Delivery Me thod Nasal Cannula Nasal Cannula Oxygen Flow Rate 2 2 Documenting provider has reviewed patient's vital signs: yes Labs Labs: Laboratory Results - last 24 hr 08/30/23 08/30/23 08/30/23 08:30 08:49 10:30 WBC 12.32 H RBC 4.81 Hgb 14.7 Hct 44.3 MCV 92 MCH 31 MCHC 33 RDW Coeff of Tommy 14.3 Plt Count 261 Neut % (Auto) 79.9 H Lymph % (Auto) 9.2 L [place] % (Auto) 7.5 Eos % (Auto) 2.2 Baso % (Auto) 0.3 Neut # (Auto) 9.80 H Lymph # (Auto) 1.10 [place] # (Auto) 0.90 Eos # (Auto) 0.30 Baso # (Auto) 0.00 Abs Immat Gran (auto) 0.10 Imm/Tot Granulo (auto) 0.9 INR 1.05 D-Dimer Quant (PE/DVT) 5.81 H VBG pH 7.433 H VBG pCO2 41 VBG pO2 58.4 H VBG HCO3 27 Sodium 139 Potassium 3.7 Chloride 102 Carbon Dioxide 27 Anion Gap 10 BUN 19 Creatinine 0.6 Estimated Creat Clear 48.74 Estimated GFR 95 Glucose 196 H Lactate 1.4 Calcium 8.8 Magnesium 1.9 Total Bilirubin 0.9 AST 20 ALT 15 Alkaline Phosphatase 97 Troponin I < 0.01 L C-Reactive Protein NT-Pro-B Natriuret Pep 274 Total Protein 7.3 Albumin 3.6 TSH 1.370 Urine Color [place] A Urine Appearance Clear Urine pH 5.5 Ur Specific [place] 1.020 Urine Protein Trace A Urine Glucose (UA) Negative Urine Ketones 1+ A Urine Blood 1+ A Urine Nitrite Negative Urine Bilirubin Negative Urine Urobilinogen 0.2 Ur Leukocyte Esterase Negative Urine RBC 5-10 A Urine WBC 5-10 A Ur Squamous Epith Cells Few Urine Bacteria Few A Ethyl Alcohol < 0.01 L SARS-CoV-2 (PCR) Negative SARS-CoV-2 Influenza Type A (PCR) Negative PCR FLU A Influenza Type B (PCR) Negative PCR FLU B RSV (PCR) Negative PCR RSV Lab Acknowledgement 08/30/23 08/30/23 08/31/23 13:47 17:10 05:38 WBC 11.45 H RBC 4.71 Hgb 14.2 Hct 43.9 MCV 93 MCH 30 MCHC 32 RDW Coeff of Tommy 14.2 Plt Count 329 Neut % (Auto) 74.3 H Lymph % (Auto) 13.4 L [place] % (Auto) 9.7 Eos % (Auto) 1.8 Baso % (Auto) 0.3 Neut # (Auto) 8.50 H Lymph # (Auto) 1.50 [place] # (Auto) 1.10 H Eos # (Auto) 0.20 Baso # (Auto) 0.00 Abs Immat Gran (auto) 0.10 Imm/Tot Granulo (auto) 0.5 INR D-Dimer Quant (PE/DVT) VBG pH VBG pCO2 VBG pO2 VBG HCO3 Sodium 140 Potassium 4.6 Chloride 107 Carbon Dioxide 27 Anion Gap 6 L BUN 21 Creatinine 0.7 Estimated Creat Clear 48.74 Estimated GFR 90 Glucose 125 H Lactate Calcium 8.9 Magnesium Total Bilirubin AST ALT Alkaline Phosphatase Troponin I 0.01 C-Reactive Protein 6.4 H NT-Pro-B Natriuret Pep Total Protein Albumin TSH Urine Color Urine Appearance Urine pH Ur Specific [place] Urine Protein Urine Glucose (UA) Urine Ketones Urine Blood Urine Nitrite Urine Bilirubin Urine Urobilinogen Ur Leukocyte Esterase Urine RBC Urine WBC Ur Squamous Epith Cells Urine Bacteria Ethyl Alcohol SARS-CoV-2 (PCR) Influenza Type A (PCR) Influenza Type B (PCR) RSV (PCR) Lab Acknowledgement Test Added Test Added 08/31/23 07:30 WBC RBC Hgb Hct MCV MCH MCHC RDW Coeff of Tommy Plt Count Neut % (Auto) Lymph % (Auto) [place] % (Auto) Eos % (Auto) Baso % (Auto) Neut # (Auto) Lymph # (Auto) [place] # (Auto) Eos # (Auto) Baso # (Auto) Abs Immat Gran (auto) Imm/Tot Granulo (auto) INR D-Dimer Quant (PE/DVT) VBG pH 7.485 H VBG pCO2 34 L VBG pO2 79.6 H VBG HCO3 26 Sodium Potassium Chloride Carbon Dioxide Anion Gap BUN Creatinine Estimated Creat Clear Estimated GFR Glucose Lactate 0.7 Calcium Magnesium Total Bilirubin AST ALT Alkaline Phosphatase Troponin I C-Reactive Protein NT-Pro-B Natriuret Pep Total Protein Albumin TSH Urine Color Urine Appearance Urine pH Ur Specific [place] Urine Protein Urine Glucose (UA) Urine Ketones Urine Blood Urine Nitrite Urine Bilirubin Urine Urobilinogen Ur Leukocyte Esterase Urine RBC Urine WBC Ur Squamous Epith Cells Urine Bacteria Ethyl Alcohol SARS-CoV-2 (PCR) Influenza Type A (PCR) Influenza Type B (PCR) RSV (PCR) Lab Acknowledgement
[2023-08-31] MEDS: TAMSULOSIN HCL 0.4 MG CAPSULE 0.8 MG PO (09:03)
[2023-08-31] MEDS: FUROSEMIDE 20 MG TABLET 40 MG PO (09:05)
[2023-08-31] MEDS: MULTIVITAMIN/MINERALS 1 TABLET 1 TAB PO (09:05)
[2023-08-31] MEDS: FINASTERIDE 5 MG TABLET PO (09:05)
[2023-08-31] MEDS: oxyBUTYnin chloride 5 MG TAB.ER.24 PO (09:06)
[2023-08-31] MEDS: SODIUM CHLORIDE 0.9 % (FLUSH) 10 ML SYRINGE 5 ML IVF ×2 (09:06→21:23)
[2023-08-31] MEDS: cefTRIAXone 1 GM in 0.9 % SODIUM CHLORIDE Mini-bag 100 ML IVPB (11:09)
[2023-08-31] MEDS: METOPROLOL SUCCINATE (XL) 25 MG TAB PO (12:31)
--- NOTE | 2023-08-31 16:40 | PC.NURSE ---
Pt alert and cooperative with cares. VSS, he is a bit hypertensive. Tele= 1st degree HB. Continues to c/o midline sternal pain especially with position change. PRN Tylenol given. BG= 129 & 143. Able to ambulate to BR with assist x2 with walker and GB. PE study this morning. Family at bedside this afternoon.
[2023-08-31] MEDS: POTASSIUM CHLORIDE 10 MEQ CAPSULE ER PO (17:19)
[2023-08-31] MEDS: ROSUVASTATIN CALCIUM 10 MG TABLET 5 MG PO (18:09)
[2023-08-31] MEDS: CITALOPRAM HYDROBROMIDE 20 MG TABLET PO (21:22)
[2023-08-31] MEDS: MONTELUKAST 10 MG TABLET PO (21:22)
[2023-08-31] MEDS: BUDESONIDE 0.5 MG/2ML NEB NEB (21:23)
[2023-08-31] MEDS: APIXABAN 5 MG TABLET PO (21:49)
[2023-08-31] MEDS: AZITHROMYCIN 250 MG TABLET 500 MG PO (21:49)
--- NOTE | 2023-08-31 23:02 | PC.NURSE ---
Shift [id number]- Patient is up to chair this evening. He ambulates with assist of 2, gait belt walker. Pericares provided for incontinence and barrier cream applied. He states some pain to sternum and generalized pain with movement.
[2023-09-01] VITALS (10 sets, daily range): BP systolic 120–157; BP diastolic 83–95; PULSE 65–101; RESP 20–24; TEMP 36.1–36.9; O2SAT 90–93
--- NOTE | 2023-09-01 06:19 | PC.NURSE ---
Shift note: Ambulates to the BR with assist of 1 to 2 and walker, needs directions as he walks. In A-fib with controlled rate overnight
[2023-09-01] MEDS: cefTRIAXone 1 GM in 0.9 % SODIUM CHLORIDE Mini-bag 100 ML IVPB (08:44)
[2023-09-01] MEDS: 0.9 % SODIUM CHLORIDE 250 ml IV (08:46)
[2023-09-01] MEDS: FUROSEMIDE 20 MG TABLET 40 MG PO (08:49)
[2023-09-01] MEDS: TAMSULOSIN HCL 0.4 MG CAPSULE 0.8 MG PO (08:49)
[2023-09-01] MEDS: APIXABAN 5 MG TABLET PO ×2 (08:49→20:49)
[2023-09-01] MEDS: MULTIVITAMIN/MINERALS 1 TABLET 1 TAB PO (08:49)
[2023-09-01] MEDS: oxyBUTYnin chloride 5 MG TAB.ER.24 PO (08:50)
[2023-09-01] MEDS: SODIUM CHLORIDE 0.9 % (FLUSH) 10 ML SYRINGE 5 ML IVF (08:50)
[2023-09-01] MEDS: FINASTERIDE 5 MG TABLET PO (08:50)
[2023-09-01] MEDS: ACETAMINOPHEN 325 MG TABLET 650 MG PO ×2 (10:19→22:01)
--- NOTE | 2023-09-01 11:56 | PM.IMPN1 ---
Progress Note: A&P Assessment and plan (1) Hypoxia: Problem details: -Hypoxia appears to be due to pneumonia. Suspect aspiration. On ceftriaxone. Added azithromycin for community-acquired pneumonia. CT shows no PE -09/01 weaned to room air without dyspnea. Ambulatory without hypoxia. Status: Acute (2) Pneumonia: Problem details: -community acquired, possibly aspiration. Continue on ceftriaxone and azithromycin, plan to transition to oral at discharge -afebrile, no further hypoxia, vitals stable Status: Acute (3) Weakness: Problem details: -Acute on chronic. Acutely worse due to acute illness and injury. At baseline, uses a four-wheel walker at home Status: Acute (4) Fall: Problem details: -Fall at home likely due to weakness in the early hours this morning. PT and OT to assess. Patient appears quite weak and frail. Discussed with patient the possibility that he might need assisted facility placement depending on his ability to move independently -09/01 PT reports patient able to ambulate and do stairs with cane. Awaiting further OT assessment Status: Acute (5) Knee injury: Problem details: -secondary to fall, Bilateral knee injury, left greater than right. No acute findings on radiographs -09/01 ambulating with walker, able to do stairs with cane Status: Acute (6) Abdominal tenderness: Problem details: -secondary to fall, Right-sided upper abdominal/sternal tenderness after his fall. No obvious bruising. CT scan showed no serious internal injury or fracture. Continue to monitor. Status: Acute (7) Chest pain: Problem details: -secondary to fall, Presenting as a chest wall injury with tenderness over the lower sternum, pain with any movement involving that area. Improving -PE, ACS ruled out Status: Acute (8) Atrial fibrillation: Problem details: -Newly discovered atrial fibrillation 08/30/2023. Asymptomatic. Remains rate controlled -started on apixaban. Continue beta-brittany -echo findings as above -outpatient follow-up with PCP and Cardiology Status: Acute (9) Cognitive impairment: Problem details: -OT assessment pending, patient refused MOCA exam yesterday. Assess functional status for living with his 's supervision, pending Status: Acute (10) Urinary tract infection: Problem details: -no evidence of UTI, Cultures growing less than 10,000 colonies Status: Acute (11) Sleep apnea: Problem details: -Recommend outpatient sleep study Status: Suspected Plan Await PT/OT assessment and discuss with if able to return home or will need SNF placement Time Spent With Patient Total time spent: Total time spent caring for the patient today was 45 minutes. This includes time spent for the visit reviewing the chart, time spent during the visit, time spent after the visit and documentation and planning in coordination of care. Subjective Date Seen: 09/01/23 Interval history: Patient reports feeling good this morning. No longer requiring oxygen, currently on room air, without dyspnea. Continues to have sternal pain. No evidence of fracture on CT noted. PT worked with patient this morning. Able to ambulate and do set of stairs with cane x3. Uses a four-wheel walker at home. No hypoxia. Tolerating orals without nausea vomiting. Exam Narrative: Exam Narrative: PHYSICAL EXAM General: Sitting up in chair, pleasant, conversant, NAD HEENT: Normocephalic, atraumatic, sclera white, EOMI, oral mucosa moist Cardiovascular: RRR, S1S2. Pulmonary: Mildly diffusely diminished without rhonchi, rales, expiratory wheezes. No dyspnea on room air Abdominal: Soft, nondistended, NTTP Neurological: Alert, answering questions appropriately, cooperative Extremities: No gross joint deformity. Bilateral lower extremity swelling noted. AROMI. Neurovascularly intact Skin: Warm, dry. Const: Vital Signs, click to edit/add: Vital Signs - 24 hr 08/31/23 15:07 08/31/23 15:45 08/31/23 15:45 Temperature 97.3 F L Pulse Rate 81 Pulse Rate [Pulse Oximeter] 87 Respiratory Rate 20 Blood Pressure [Le ft Arm] 132/79 Blood Pressure [Ri ght Arm] Pulse Oximetry 90 90 Oxygen Delivery Me thod Nasal Cannula Nasal Cannula Oxygen Flow Rate 2 2 08/31/23 19:00 08/31/23 23:00 08/31/23 23:00 Temperature 97 F L Pulse Rate 81 Pulse Rate [Pulse Oximeter] 76 82 Respiratory Rate 20 20 Blood Pressure [Le ft Arm] 150/82 H Blood Pressure [Ri ght Arm] Pulse Oximetry 92 Oxygen Delivery Me thod Nasal Cannula Oxygen Flow Rate 2 08/31/23 23:00 08/31/23 23:00 09/01/23 02:21 Temperature 97.8 F 97.2 F L Pulse Rate Pulse Rate [Pulse Oximeter] 82 86 Respiratory Rate 20 20 24 Blood Pressure [Le ft Arm] 149/91 H 157/85 H Blood Pressure [Ri ght Arm] Pulse Oximetry 92 92 93 Oxygen Delivery Me thod Nasal Cannula Nasal Cannula Nasal Cannula Oxygen Flow Rate 2 2 2.0 09/01/23 07:37 09/01/23 07:37 09/01/23 07:37 Temperature 98.4 F Pulse Rate Pulse Rate [Pulse Oximeter] 72 72 Respiratory Rate 24 24 24 Blood Pressure [Le ft Arm] Blood Pressure [Ri ght Arm] 143/91 H Pulse Oximetry 93 93 Oxygen Delivery Me thod Nasal Cannula Nasal Cannula Oxygen Flow Rate 1 1 09/01/23 07:50 09/01/23 11:00 Temperature 97.9 F Pulse Rate 65 Pulse Rate [Pulse Oximeter] 93 Respiratory Rate 24 Blood Pressure [Le ft Arm] 132/83 Blood Pressure [Ri ght Arm] Pulse Oximetry 90 Oxygen Delivery Me thod Room Air Oxygen Flow Rate Imaging Echo: Radiologist's impression: Technically limited exam. Normal LV size, moderately increased wall thickness, normal global systolic function with an EF of 55-60%. Right ventricular cavity size is normal, global systolic RV function is normal. No hemodynamically significant valve disease detected.
[2023-09-01] MEDS: METOPROLOL SUCCINATE (XL) 25 MG TAB PO (11:58)
--- NOTE | 2023-09-01 14:00 | RESP.RT ---
Patient sitting up in chair, On room air, breathing regular/easy, RR 20/minute, SaO2 90-91%, If patients falls asleep in chair SaO2 decreases below 90%, to high 80's%. Good color, good clear voice. Fiar air movement in lug wiley, slightly diminished in both bases.
[2023-09-01] MEDS: ROSUVASTATIN CALCIUM 10 MG TABLET 5 MG PO (17:39)
[2023-09-01] MEDS: POTASSIUM CHLORIDE 10 MEQ CAPSULE ER PO (17:39)
--- NOTE | 2023-09-01 18:12 | PC.NURSE ---
End of Shift: Patient pleasant and cooperative. Patient vitally stable, lungs clear, BS WNL, IV's SL. Patient rates sternal pain at most 8/10, tylenol given once. Patient 1 assist, walker, gb. Patient urinating continent/incontinent, and tolerating regular diet. Patient blood sugars 134, 208, 143. Patient's bottom in purple, barrier cream applied.
[2023-09-01] MEDS: CITALOPRAM HYDROBROMIDE 20 MG TABLET PO (20:49)
[2023-09-01] MEDS: MONTELUKAST 10 MG TABLET PO (20:49)
[2023-09-01] MEDS: BUDESONIDE 0.5 MG/2ML NEB NEB (20:49)
[2023-09-01] MEDS: AZITHROMYCIN 250 MG TABLET 500 MG PO (21:54)
[2023-09-02 02:52] VITALS: BP 141/82; PULSE 74; RESP 20; TEMP 36.3; O2SAT 91
--- NOTE | 2023-09-02 06:13 | PC.NURSE ---
End of Shift:? Pt pleasant and cooperative throughout shift reporting pain between 6-05/26. PRN tylenol administered, pt repositioned. Pt reports pain is 0 when sitting still, worsens with movement. Pain located on back and sternum. Pt ambulating with walker, GB, SBA. Ambulates well once standing. Tele remained on, 1 degree AVB interpreted. O2 sats remained around 91% throughout shift. Continent with bladder, no BM throughout shift.?
[2023-09-02] MEDS: SODIUM CHLORIDE 0.9 % (FLUSH) 10 ML SYRINGE 5 ML IVF ×2 (06:50→09:45)
[2023-09-02 07:00] VITALS: PULSE 74; RESP 24; O2SAT 89
[2023-09-02 08:52] VITALS: BP 157/141; PULSE 63; RESP 24; TEMP 35.8; O2SAT 89
[2023-09-02] MEDS: 0.9 % SODIUM CHLORIDE 250 ml IV (09:22)
[2023-09-02] MEDS: cefTRIAXone 1 GM in 0.9 % SODIUM CHLORIDE Mini-bag 100 ML IVPB (09:22)
[2023-09-02] MEDS: APIXABAN 5 MG TABLET PO (09:23)
[2023-09-02] MEDS: MULTIVITAMIN/MINERALS 1 TABLET 1 TAB PO (09:23)
[2023-09-02] MEDS: TAMSULOSIN HCL 0.4 MG CAPSULE 0.8 MG PO (09:23)
[2023-09-02] MEDS: FUROSEMIDE 20 MG TABLET 40 MG PO (09:23)
[2023-09-02] MEDS: FINASTERIDE 5 MG TABLET PO (09:23)
[2023-09-02] MEDS: oxyBUTYnin chloride 5 MG TAB.ER.24 PO (09:23)
[2023-09-02 11:00] VITALS: BP 139/80; PULSE 89; RESP 22; TEMP 36.9; O2SAT 91
--- NOTE | 2023-09-02 12:07 | PM.DS1 ---
DS: Providers Provider Date Seen: 09/02/23 Date of admission: 08/30/23 17:07 Primary care physician: Glenn Cole MD Admitting Clinician: Era Boyer MD Consults: 08/30/23 16:43 Consult to Occupational Therapy [CONS] Routine Comment: Reason(s) for OT Consult:: Difficulty Managing ADLs Any Restrictions?:: No Restrictions Consult to Physical Therapy [CONS] Routine Comment: Reason(s) for PT Consult:: Recent Falls Any Restrictions?:: No Restrictions 08/30/23 17:09 Consult to Occupational Therapy [CONS] Routine Comment: Reason(s) for OT Consult:: Evaluate and Treat Any Restrictions?:: No Restrictions Consult to Physical Therapy [CONS] Routine Comment: Reason(s) for PT Consult:: Evaluate and Treat Any Restrictions?:: No Restrictions Consult to Applied Behavior [employer] Specialist [CONS] Routine Comment: Reason for Consult:: Discharge Planning Needs Attending Physician on discharge: AICHA Garcia, [facility] Date of Discharge: 09/02/23 DS: Diagnosis Discharge Diagnosis (1) Pneumonia: Status: Acute Problem details: -community acquired, possibly aspiration. Continued on ceftriaxone and azithromycin. Transition to oral Augmentin to complete 7 day course and oral azithromycin to complete 3 day course. -afebrile, no further hypoxia, vitals remained stable -discussed with patient importance of sitting in a chair at a table in an upright position while eating and drinking as patient was noted to be reclined doing both by providers and therapy, obviously putting him at high risk for aspiration. (2) Cognitive impairment: Status: Acute Problem details: -OT assessment pending, patient refused initial attempt at MOCA exam. -[place] score 19 -recommend outpatient neurocognitive testing -RECOMMEND NO DRIVING UNTIL FURTHER EVALUATION (3) Abdominal tenderness: Status: Acute Problem details: -secondary to fall, Right-sided upper abdominal/sternal tenderness after his fall. No obvious bruising. CT scan showed no serious internal injury or fracture. Continued to improve during hospital course. No further management recommendations on discharge. (4) Knee injury: Status: Acute Problem details: -secondary to fall, Bilateral knee injury, left greater than right. No acute findings on radiographs -09/01 ambulating with walker, able to do stairs with cane -continue symptomatic cares on discharge, Tylenol, ice, rest (5) Fall: Status: Acute Problem details: -Fall at home likely due to weakness in the early hours this morning. PT and OT to assess. Patient appears quite weak and frail. Discussed with patient the possibility that he might need [facility] facility placement depending on his ability to move independently -09/01 PT reports patient able to ambulate and do stairs with cane. Continue with learned skills on discharge. (6) Chest pain: Status: Acute Problem details: -secondary to fall, Presenting as a chest wall injury with tenderness over the lower sternum, pain with any movement involving that area. Improving at time of discharge -PE, ACS ruled out (7) Hypoxia: Status: Acute Problem details: -Hypoxia appears to be due to pneumonia. Suspect aspiration. On ceftriaxone. Added azithromycin for community-acquired pneumonia. CT shows no PE -09/01 weaned to room air without dyspnea. Ambulatory without hypoxia. No further supplemental oxygen required at time of discharge. (8) Weakness: Status: Acute Problem details: -Acute on chronic. Acutely worse due to acute illness and injury. At baseline, uses a four-wheel walker at home -PT and OT consulted. in agreement to take patient home and assist with cares. -resume home cares as previously ordered on discharge. (9) Atrial fibrillation: Status: Acute Problem details: -Newly discovered atrial fibrillation 08/30/2023. Asymptomatic. Remains rate controlled -started on apixaban 5 mg b.i.d., monitor creatinine and adjust as necessary.. Continue beta-brittany -echo findings as above -outpatient follow-up with PCP and Cardiology (10) Sleep apnea: Status: Suspected Problem details: -Recommend formal outpatient sleep study (11) Pulmonary nodule: Status: Acute Problem details: -incidental finding right lower lobe. Recommend outpatient repeat CT study 6 months DS: Summary Hospital Course Hospital Course: [age] year old male past medical history significant for CAD, COPD, BPH, type 2 diabetes mellitus, MDD, hypertension, hyperlipidemia was admitted to the medical floor for acute hypoxia and weakness in setting of pneumonia. Course of care and details as noted above. Remainder of chronic medical comorbidities were monitored and managed with home medications. Status at Discharge Functional status at discharge: uses cane/walker Overall status at discharge: patient is progressing back to baseline Time Spent with Patient Time attestation: Total time spent providing and/or coordinating discharge services: Time spent: Greater than 30 minutes Exam Narrative: Exam Narrative: PHYSICAL EXAM General: Pleasant, conversant, NAD HEENT: Normocephalic, atraumatic, sclera white, EOMI, oral mucosa moist Cardiovascular: IRRR. Pulmonary: Mildly diminished bilaterally without rhonchi, rales, expiratory wheezes. No dyspnea Abdominal: Soft, nondistended, NTTP Neurological: Alert, cranial nerves intact, no focal findings Extremities: No gross joint deformity. Bilateral lower extremity swelling. AROMI. Neurovascularly intact Skin: Warm, dry. Const: Vital Signs, click to edit/add: Vital Signs - 24 hr 09/01/23 13:52 09/01/23 13:55 09/01/23 15:00 Temperature 98.4 F Pulse Rate Pulse Rate [Pulse Oximeter] 96 Respiratory Rate 20 22 24 Blood Pressure [Ri ght Arm] 135/95 H Pulse Oximetry 91 91 Oxygen Delivery Me thod Room Air Room Air 09/01/23 15:00 09/01/23 15:00 09/01/23 16:38 Temperature Pulse Rate 78 Pulse Rate [Pulse Oximeter] 96 Respiratory Rate 24 24 Blood Pressure [Ri ght Arm] Pulse Oximetry 91 Oxygen Delivery Me thod Room Air 09/01/23 19:00 09/01/23 23:00 09/01/23 23:00 Temperature 97.8 F Pulse Rate Pulse Rate [Pulse Oximeter] 101 H 77 Respiratory Rate 20 20 20 Blood Pressure [Ri ght Arm] 120/84 Pulse Oximetry 91 91 Oxygen Delivery Me thod Room Air Room Air 09/01/23 23:00 09/01/23 23:00 09/02/23 02:52 Temperature 97 F L 97.3 F L Pulse Rate 66 Pulse Rate [Pulse Oximeter] 77 74 Respiratory Rate 20 20 Blood Pressure [Ri ght Arm] 139/85 141/82 H Pulse Oximetry 91 91 Oxygen Delivery Me thod Room Air Room Air 09/02/23 07:00 09/02/23 08:52 09/02/23 11:00 Temperature 96.4 F L 98.4 F Pulse Rate Pulse Rate [Pulse Oximeter] 63 89 Respiratory Rate 24 24 22 Blood Pressure [Ri ght Arm] 157/141 H 139/80 Pulse Oximetry 89 89 91 Oxygen Delivery Me thod Room Air Room Air Room Air DS: Data Data Completed and Pending Labs on day of discharge: Preliminary micro results at discharge 08/30/23 09:28 Blood Culture - Preliminary Blood NO GROWTH AFTER 72 HOURS 08/30/23 09:20 Blood Culture - Preliminary Blood NO GROWTH AFTER 72 HOURS Discharge Plan Discharge Disposition: Home, Self-Care Date of Admission: 08/30/23 17:07 Attending Provider on Discharge: Tiny [place] Primary Care Provider: Glenn Cole Condition: Improved Anticipated Discharge Date/Time: 09/02/23 11:43 Discharge Medications: New azithromycin 250 mg Tablet 500 mg PO ONCE Qty: 2 0RF Taper: Z-NESSA 500 mg Q24H for 1 Day and 0 Hour apixaban 2.5 mg tablet 5 mg PO BID Qty: 120 0RF amoxicillin-pot clavulanate [Augmentin XR] 1,000-62.5 mg tablet extended release 12 hr 1 tab PO BID 5 Days Qty: 10 0RF Continued albuterol sulfate 90 mcg/actuation HFA aerosol inhaler 2 puff inhalation Q4H PRN Patient Comments: INHALE 2 PUFFS BY MOUTH EVERY 4 HOURS NEEDED Azo Bladder Control 300 mg capsule 2 cap PO DAILY nitroglycerin 0.4 mg tablet, sublingual 0.4 mg sublingual Q5-15M PRN (Reason: chest pain) Qty: 25 1RF furosemide 20 mg tablet 40 mg PO DAILY Qty: 180 1RF Rx Instructions: may take additional tablet as needed for shortness of breath insulin aspart U-100 [Novolog FlexPen U-100 Insulin] 100 unit/mL (3 mL) insulin pen 10 unit subcut BID PRN (Reason: bs > 200) Qty: 15 5RF cholecalciferol (vitamin D3) 25 mcg (1,000 unit) capsule 25 mcg PO DAILY (DME) lancets [Microlet Lancet] Misc See Rx Instructions .Route Qty: 300 8RF Rx Instructions: Use to test TID zinc gluconate 30 mg tablet 30 mg PO DAILY multivitamin [Daily Multi-Vitamin] Tablet 1 tab PO DAILY (DME) Diabetic Test Strips Misc See Rx Instructions .Route Qty: 100 12RF Rx Instructions: Bid Metamucil 3.4 gram/5.4 gram powder 1 tbsp PO DAILY PRN Rx Instructions: mix into at least 8 oz of water or juice before administering potassium chloride 10 mEq capsule, extended release 10 meq PO QPM citalopram 20 mg tablet 20 mg PO HS montelukast 10 mg tablet 10 mg PO HS metoprolol succinate 25 mg tablet extended release 24 hr 25 mg PO DAILY@12 rosuvastatin 5 mg tablet 5 mg PO QPM fluticasone propion-salmeterol [Advair HFA] 230-21 mcg/actuation HFA aerosol inhaler 3 inh inhalation HS finasteride 5 mg tablet 5 mg PO DAILY Qty: 90 2RF insulin glargine [Basaglar KwikPen U-100 Insulin] 100 unit/mL (3 mL) insulin pen 30 unit subcut BID Qty: 15 5RF tamsulosin 0.4 mg capsule 0.8 mg PO DAILY Qty: 180 3RF (DME) pen needle, diabetic [BD Ultra-Fine Mini Pen Needle] 31 gauge x 3/16 needle See Rx Instructions .ROUTE .MEDSUPPLY Qty: 100 5RF Rx Instructions: Use 4 times daily oxybutynin chloride 5 mg tablet extended release 24hr 5 mg PO DAILY Qty: 90 0RF Discontinued ibuprofen 200 mg tablet 400 mg PO Q6H PRN Patient Comments: infrequent use reported Discharge Orders: Discharge Order (Routine); Ordered 09/02/23 Ordered By: Tiny [place] Patient Education: A-fib (Atrial Fibrillation) (GEN), Bacterial Pneumonia (GEN) Additional Instructions: Finish your antibiotic for your pneumonia. You have been started on medication for atrial fibrillation. You will need to follow-up with her PCP. Recommend outpatient Cardiology for further workup new onset atrial fibrillation. A pulmonary nodule was noted in your right lobe. You will need a repeat CT in 6 months. Recommend outpatient sleep study. Recommend outpatient neurocognitive testing. Resume home care as previously ordered. Activity Level: Activity as Tolerated Activity Detail: DO NOT DRIVE UNTIL YOU ARE SEEN BY YOUR PRIMARY CARE PROVIDER IN THE CLINIC FOR REEVALUATION Discharge Diet: Regular Follow Up Appointments: Glenn Cole MD [Primary Care Provider] - 09/09/23 (Follow up hospital stay. Weakness, cognitive impairment. No driving until further evaluation. Recommend outpatient neurocognitive testing, cardiology consult, formal sleep study. Will need repeat CT scan in 6 months for right lower lobe nodule found on CT.) Forms: [facility] Info Instructions
[2023-09-02] MEDS: METOPROLOL SUCCINATE (XL) 25 MG TAB PO (13:43)
--- NOTE | 2023-09-02 14:48 | PC.NURSE ---
shift note: vss stable. pt up 1/walker with slow steady gait. bilat l/e with venous stasis changes and dry skin. noted 3+ edema to bilat l/e. pt sob with minimal activity. sats 89-95% on RA with rr=22-24/min. LS dim bilat. Pt has wet non productive cough. HR irreg. IV dc'd x2 on rt hand and AC intact. Reviewed dc instructions and copies sent with pt at al. Belongings reviewed and sent with pt at al. Taught IS and dc pt with IS after return demonstration done.
--- NOTE | 2023-09-02 15:06 | PC.SOCIAL ---
Discharge planning- Pt will be discharging home with . Pt has home care currently through [facility] having nursing visits (Tere- [phone]). Provided Tere from [facility] with an update. Tere informs they would need a resumption of care order from MD and discharge summary faxed to [phone]. Provided information to charge nurse. Social work will follow up as needed.
== END 2023-09-02 14:50 | disposition home or self-care (01) | DRG 190 ==
LOC: ED 09:37 → MEDSURG 12:31
PROVIDERS: Admitting Provider Family Medicine; Emergency Provider Emergency Medicine; PCP Family Medicine; Visit Provider Family Medicine
DX: J44.0 Chronic obstructive pulmonary disease with (acute) lower respiratory infection (principal); J18.9 Pneumonia, unspecified organism; R09.02 Hypoxemia; G47.30 Sleep apnea, unspecified; I48.91 Unspecified atrial fibrillation; R53.1 Weakness; S29.9XXA Unspecified injury of thorax, initial encounter; S89.92XA Unspecified injury of left lower leg, initial encounter; S89.91XA Unspecified injury of right lower leg, initial encounter; W10.9XXA Fall (on) (from) unspecified stairs and steps, initial encounter; Y92.009 Unspecified place in unspecified non-institutional (private) residence as the place of occurrence of the external cause; G31.84 Mild cognitive impairment of uncertain or unknown etiology; I89.0 Lymphedema, not elsewhere classified; R10.11 Right upper quadrant pain; R91.1 Solitary pulmonary nodule; N40.0 Benign prostatic hyperplasia without lower urinary tract symptoms; I10 Essential (primary) hypertension; I73.9 Peripheral vascular disease, unspecified; E11.9 Type 2 diabetes mellitus without complications; G89.29 Other chronic pain; I25.10 Atherosclerotic heart disease of native coronary artery without angina pectoris; E78.5 Hyperlipidemia, unspecified
CPT/HCPCS: 36415; 51798; 70450; 71045; 71260; 71275; 72125; 73562; 74177; 80048; 80053; 81001; 82077; 82803; 82962; 83605; 83735; 83880; 84443; 84484; 85025; 85379; 85610; 86140; 87040; 87086; 87631; 93306; 94640; 97116; 97162; 97166; 97530; 97535; 99284; 99285; A9153; A9270; G0378; J0696; J1650; J1885; J7050; J7120; J7626; Q9967